=== PATIENT | male | born 1955 | race Caucasian/White ===

== ENCOUNTER 2022-09-07 21:02 | Emergency (ER) | payer MEDICARE, MEDICAID, SELFPAY ==
--- NOTE | ~2022-09-07 | CT_ITS ---
EXAMINATION: NONCONTRAST HEAD CT NONCONTRAST CERVICAL SPINE CT INDICATION INFORMATION: Fall with laceration to the back of the head COMPARISON: None TECHNIQUE: Separate noncontrast CT examinations of the head and cervical spine were performed. Coronal and sagittal images were created for each examination at the technologist workstation. This CT examination was performed using dose optimization techniques as appropriate, variously including the following: *Automated exposure control *Adjustment of mA and/or kV according to patient size (this includes techniques or standardized protocols for targeted exams where dose is matched to indication/reason for exam; i.e. extremities or head) *Use of iterative reconstruction technique DLP: 905 mGy-cm FINDINGS: HEAD: No intra or extra-axial fluid collection, hemorrhage, or mass. No ventriculomegaly. No midline shift or herniation. Basal cisterns are patent. Skelton-white matter differentiation is maintained. No territorial encephalomalacia. No significant volume loss. There is no abnormal attenuation within the brain parenchyma. Small right posterior scalp laceration. Status post lateral lens extractions. No calvarial fracture. Mild mucosal thickening in a few anterior right ethmoid air cells. Mastoid air cells normally aerated. CERVICAL SPINE: Alignment: Minimal retrolisthesis at C2-C3 and C3-C4. Minimal grade 1 anterolisthesis at C7-T1. No additional subluxation. Vertebra: No acute fracture. No prevertebral soft tissue swelling. Degenerative disc disease: Moderate cervical spondylosis at C2-C3 through C6-C7 with moderate disc height loss, endplate sclerosis, vacuum disc phenomena hepatic levels and endplate proliferative change. Facet arthrosis most prominently at C7-T1. Multilevel moderate or moderate to severe spinal canal stenosis at C3-C4 through C6-C7. Other findings: Visualized lung apices clear. Thyroid gland grossly unremarkable. No gross mass or adenopathy in the [id number]. CT/CT cervical spine wo IV con IMPRESSION: 1. No intracranial hemorrhage or calvarial fracture. 2. Right posterior scalp laceration. 3. No traumatic subluxation or acute cervical spine fracture. 4. Moderate cervical spondylosis with multilevel moderate or moderate to severe spinal canal stenosis suspected.
--- NOTE | ~2022-09-07 | CT_ITS ---
EXAMINATION: NONCONTRAST HEAD CT NONCONTRAST CERVICAL SPINE CT INDICATION INFORMATION: Fall with laceration to the back of the head COMPARISON: None TECHNIQUE: Separate noncontrast CT examinations of the head and cervical spine were performed. Coronal and sagittal images were created for each examination at the technologist workstation. This CT examination was performed using dose optimization techniques as appropriate, variously including the following: *Automated exposure control *Adjustment of mA and/or kV according to patient size (this includes techniques or standardized protocols for targeted exams where dose is matched to indication/reason for exam; i.e. extremities or head) *Use of iterative reconstruction technique DLP: 905 mGy-cm FINDINGS: HEAD: No intra or extra-axial fluid collection, hemorrhage, or mass. No ventriculomegaly. No midline shift or herniation. Basal cisterns are patent. Skelton-white matter differentiation is maintained. No territorial encephalomalacia. No significant volume loss. There is no abnormal attenuation within the brain parenchyma. Small right posterior scalp laceration. Status post lateral lens extractions. No calvarial fracture. Mild mucosal thickening in a few anterior right ethmoid air cells. Mastoid air cells normally aerated. CERVICAL SPINE: Alignment: Minimal retrolisthesis at C2-C3 and C3-C4. Minimal grade 1 anterolisthesis at C7-T1. No additional subluxation. Vertebra: No acute fracture. No prevertebral soft tissue swelling. Degenerative disc disease: Moderate cervical spondylosis at C2-C3 through C6-C7 with moderate disc height loss, endplate sclerosis, vacuum disc phenomena hepatic levels and endplate proliferative change. Facet arthrosis most prominently at C7-T1. Multilevel moderate or moderate to severe spinal canal stenosis at C3-C4 through C6-C7. Other findings: Visualized lung apices clear. Thyroid gland grossly unremarkable. No gross mass or adenopathy in the [id number]. CT/CT head/brain wo IV con IMPRESSION: 1. No intracranial hemorrhage or calvarial fracture. 2. Right posterior scalp laceration. 3. No traumatic subluxation or acute cervical spine fracture. 4. Moderate cervical spondylosis with multilevel moderate or moderate to severe spinal canal stenosis suspected.
[2022-09-07 21:06] VITALS: BP 130/80; PULSE 71; O2SAT 98
[2022-09-07 21:21] VITALS: BP 129/78; PULSE 68; RESP 18; TEMP 36.7; O2SAT 97; BMI 21.6
--- NOTE | 2022-09-08 00:07 | ED_ITS ---
HPI - Wound/Laceration General Chief Complaint: Wound/Laceration Stated Complaint: Fall with Head Lac Time Seen by Provider: 09/07/22 21:35 Source: patient Mode of arrival: EMS History of Present Illness HPI narrative: 67-year-old male was brought in by EMS after tripping and falling while cooking dinner and struck the back of his head against the floor without loss of consciousness and is unclear of when his last tetanus was and also denies any use blood thinners. Related Data Allergies Allergy/AdvReac Type Severity Reaction Status Date / Time cat dander Allergy Unknown Verified 09/07/22 21:21 lobster Allergy Vomiting Uncoded 09/07/22 21:21 Review of Systems Review of Systems: Pertinent positives and negatives as stated in HPI. [facility] Past Medical History Source: nursing notes reviewed Social History Social History Advance Directives: No Advance Directives Information Provided: No Physical Exam Vital Signs: Vital Signs: Last Vital Signs Temp 98.0 F 09/07/22 21:21 Pulse 68 09/07/22 21:21 Resp 18 09/07/22 21:21 BP 129/78 09/07/22 21:21 Pulse Ox 97 09/07/22 21:21 O2 Del Method 09/07/22 21:21 BMI result Body Mass Index 21.6 VITAL SIGNS: Reviewed. GENERAL: Well developed, well nourished, in no acute distress. HEAD: Normocephalic/6 cm linear laceration to the cephalad aspect of the occiput EYES: PERRLA, EOMI EARS: Ext canals without abnormality OROPHARYNX: no oral lesions noted, posterior pharynx clear NECK: Supple, no adenopathy, no midline cervical spine tenderness LUNGS: Normal breath sounds. No adventitious sounds or accessory muscle use. SpO2<97> CARDIOVASCULAR: Regular rate and rhythm without noted murmurs ABDOMEN: Soft, non-tender, non-distended with bowel sounds. MUSCULOSKELETAL: No tenderness, deformities, or effusions noted on gross inspection. EXTREMITIES: No cyanosis, clubbing or edema. SKIN: Inspection of the skin reveals no rashes NEUROLOGIC: Alert and oriented x 4. Strength and sensation to light touch were grossly intact x 4. Medical Decision Making Medical Decision Making [facility] Narrative: 67-year-old male with history and clinical presentation after review of all investigations my interpretation is a mechanical fall with head strike no LOC see and not on blood thinners with imaging studies within normal limits, patient received Tdap and also had [address]. Patient is otherwise discharged home with instructions to return to either his primary care provider or this facility for removal of the alma in 7 days. Differential Diagnosis Differential Diagnoses: The differential diagnosis associated with the presentation includes Please see the discussion above Radiology Impression Radiologist Impression: My interpretation is in agreement with radiology's impression of the imaging study. Procedures Laceration Laceration 1: Site: scalp Side (If applicable): right Size (cm): 6 Description: linear Depth: simple, single layer Local Anesthetic: lidocaine 2% Amount of anesthesia used (mL): 7 Pre-repair: wound explored, irrigated extensively and deep structures intact Skin layer closed with: other (Bowman) Number of sutures: 11 Discharge Plan Discharge Clinical Impression: Accident due to mechanical fall without injury, Laceration of scalp Patient Disposition: Home, Self-Care Instructions: Staple Care (ED), Laceration (ED) Additional Instructions: 1. Resume all home medications. 2. Return to your primary care provider or this institution for removal of your alma in 7 days(there are 11). You may cleanse your hair and scalp with soap and water but please dry immediately afterwards. 3. Recommend grmz-bld-koutpet Tylenol/ibuprofen as needed for pain control. 4. Please follow-up with primary care provider in next 1-2 days for re- evaluation further outpatient management. Return to the ER for any worsening symptoms. Referrals: Brad Christianson MD [Primary Care Provider] -
[2022-09-08] MEDS: Lidocaine HCl 2 % MPF 5 ML VIAL SUBCUT (00:39)
[2022-09-08] MEDS: Diphth,Pertus(ACell),Tet Adult 0.5 ML SYRINGE IM (00:39)
[2022-09-08] MEDS: Acetaminophen 325 MG TABLET 975 MG PO (00:40)
[2022-09-08] MEDS: Ibuprofen 400 MG TABLET PO (00:42)
[2022-09-08 00:56] VITALS: RESP 18
== END 2022-09-08 00:58 | disposition home or self-care (01) ==
PROVIDERS: Emergency Provider Student in an Organized Health Care Education/Training Program; PCP Radiology Vascular & Interventional Radiology
DX: S00.01XA Abrasion of scalp, initial encounter (principal); M54.2 Cervicalgia; R51.9 Headache, unspecified; W01.10XA Fall on same level from slipping, tripping and stumbling with subsequent striking against unspecified object, initial encounter; Y93.9 Activity, unspecified; Y92.000 Kitchen of unspecified non-institutional (private) residence as the place of occurrence of the external cause; Y99.9 Unspecified external cause status; Z79.899 Other long term (current) drug therapy; Z23 Encounter for immunization
CPT/HCPCS: 12032; 70450; 72125; 90471; 90715; 99284

== ENCOUNTER 2023-08-27 09:53 | Emergency (ER) | payer MEDICARE, MEDICAID, SELFPAY ==
--- NOTE | ~2023-08-27 | CT_ITS ---
EXAMINATION: CT HEAD WITHOUT CONTRAST CLINICAL INFORMATION: Dizziness and vertigo COMPARISON: CT head on 09/07/2022 TECHNIQUE: Contiguous axial imaging was performed from the skull base to vertex without intravenous administration of contrast. This CT examination was performed using dose optimization techniques as appropriate, variously including the following: *Automated exposure control *Adjustment of mA and/or kV according to patient size (this includes techniques or standardized protocols for targeted exams where dose is matched to indication/reason for exam; i.e. extremities or head) *Use of iterative reconstruction technique DLP: 657 mGy-cm FINDINGS: No acute intracranial hemorrhage or infarct. The perez-white matter differentiation is preserved. No midline shift or hydrocephalus. No acute extra-axial fluid collections. The osseous structures are unremarkable. Sequela bilateral lens replacement. Otherwise, no orbital pathology. Mild mucosal thickening of the maxillary sinuses. The mastoid air cells are clear. CT/CT head/brain wo IV con IMPRESSION: No acute intracranial pathology.
--- NOTE | ~2023-08-27 | MR_ITS ---
EXAMINATION: MR BRAIN WITHOUT CONTRAST CLINICAL INFORMATION: Dizziness and vertigo COMPARISON: CT head on 08/27/2023 and 09/07/2022 TECHNIQUE: MRI of the brain was obtained using routine sequences without contrast. FINDINGS: No acute intracranial hemorrhage or infarct. Scattered and confluent periventricular white matter T2/FLAIR hyperintensities, nonspecific however commonly seen with small vessel ischemic disease. Prominence of the supratentorial ventricles out of proportion to sulci widening. No midline shift or hydrocephalus. No acute extra-axial fluid collections. The osseous structures are unremarkable. The pituitary gland, pineal gland and remaining midline structures are unremarkable. Sequela bilateral lens replacement. Otherwise, no orbital pathology. Mucosal thickening of the paranasal sinuses. The mastoid air cells are clear. MR/MR head/brain wo con IMPRESSION: -No acute intracranial abnormality. -Prominence of the supratentorial ventricles out of proportion to sulci widening is nonspecific however can be seen in the setting of normal pressure hydrocephalus. -Chronic microangiopathy.
[2023-08-27 09:59] VITALS: BP 141/80; PULSE 81; O2SAT 97
[2023-08-27 10:00] VITALS: BP 135/75; PULSE 63; RESP 13; TEMP 36.5; O2SAT 94; BMI 19.3
--- NOTE | 2023-08-27 10:07 | ECG_ITS ---
Test Reason : DIZZINESS Blood Pressure : / mmHG Vent. Rate : 063 BPM Atrial Rate : 063 BPM P-R Int : 108 ms QRS Dur : 076 ms QT Int : 408 ms P-R-T Axes : 071 073 061 degrees QTc Int : 417 ms Sinus rhythm with short SC Anterior infarct , age undetermined Abnormal ECG No previous ECGs available Referred By: Wero Montalvo Electronically Signed By:
[2023-08-27 10:15] VITALS: BP 135/80; PULSE 68; RESP 12; TEMP 36.6; O2SAT 97
--- NOTE | 2023-08-27 10:18 | ED_ITS ---
HPI - General Adult General Chief complaint: General Medical Stated complaint: NAUSEA AND DIZZINESS SINCE THIS AM PER EMS Time Seen by Provider: 08/27/23 10:04 Source: patient and EMS Mode of arrival: EMS Limitations: no limitations History of Present Illness HPI narrative: 68-year-old male brought in by ambulance for evaluation of vertigo and room spinning. Patient's symptoms started 2 days ago had an episode of room spinning and feeling very dizzy and unbalanced had nausea but no vomiting, patient declined any weakness or numbness or speech abnormality. Patient stated that symptoms resolved and patient felt much improved for yesterday then today after he woke up from sleep felt room spinning and dizzy. No CP or SOB. Related Data Previous Rx's Medication Instructions Recorded meclizine 25 mg tablet 25 mg PO BID PRN dizziness #14 tabs 08/27/23 Allergies Allergy/AdvReac Type Severity Reaction Status Date / Time cat dander Allergy Unknown Verified 09/07/22 21:21 lobster Allergy Vomiting Uncoded 09/07/22 21:21 Review of Systems 2 Review of Systems: all other systems are reviewed and are negative Constitutional: Reports as per HPI and Reports no additional constitutional complaints Eyes: Reports as per HPI and Reports no additional eye complaints Reports system reviewed and no additional complaints, except as documented Cardiovascular: Reports as per HPI and Reports no additional cardiovascular complaints Respiratory: Reports as per HPI and Reports no additional respiratory complaints Gastrointestinal: Reports as per HPI and Reports no additional gastrointestinal complaints Genitourinary: Reports no additional female genitourinary complaints Musculoskeletal: Reports no additional musculoskeletal complaints Skin/Breast: Reports system reviewed and no additional complaints, except as docu Psychiatric: Reports no additional psychiatric complaints Endocrine: Reports no additional endocrine complaints Hematologic/Lymphatic: Reports no additional hematologic/lymphatic complaints Allergic/Immunologic: Reports no additional allergic/immunologic complaints Reports system reviewed and no additional complaints, except as documented and Reports Abnormal speech present [facility] Social History Social History Alcohol intake: current Alcohol intake frequency: a few times a week Alcohol type: beer Smoked in Last 30 Days: No Use of substances other than those prescribed or required for medical reasons: No Advance Directives: Yes Advance Directives Information Provided: No Advance Directives on File: No Physical Exam ED Vital Signs: Vital Signs - 24 hr 08/27/23 10:00 08/27/23 10:15 Temperature 97.7 F 98 F Pulse Rate 63 68 Respiratory Rate 13 12 Blood Pressure 135/75 135/80 Pulse Oximetry 94 97 Oxygen Delivery Method Room Air Room Air BMI result Body Mass Index 19.3 Vital signs have been reviewed and appear to be correct. Blood pressure elevated. Heart rate normal. Respiratory rate normal. Temperature normal. Oxygen saturation normal. Appearance: Alert. Oriented X3. No acute distress. Head: Normal external exam. Normocephalic. Atraumatic. No Mondragon signs noted. No raccoon eyes noted Eyes: PERRLA. EOMI. Conjunctiva and sclera normal. Eyelids normal. ENT: TM's Normal. Pharynx normal. Uvula midline. Moist mucous membranes. No trismus noted. No drooling noted. No muffled voice noted. Neck: Normal inspection. Neck supple. FROM. No adenopathy. Thyroid Normal. No meningeal signs. No neck mass noted. CVS: Normal heart rate and rhythm. Heart sound normal. No murmurs noted. Pulses normal throughout. Respiratory: No respiratory distress. Painless inspiration. Breath sounds normal. No wheezes/rales/rhonchi noted. Chest nontender. No accessory muscle usage noted or decreased air movement noted. Abdomen: Soft and nontender. Bowel sounds normal in all 4 quadrants. No distention noted. No organomegaly noted. No visible injury noted. Back: No CVA tenderness. Full range of motion noted. Skin: Skin warm and dry. Normal skin color. Normal skin turgor. No rashes/lesions/lacerations noted. Extremities: No lower extremity edema. Extremities exhibit normal range of motion. Extremities nontender. Neuro: Oriented X 3. Cranial nerve exam: II-XII are grossly intact No motor deficit. No sensory deficit. Reflexes normal. NIH Stroke Scale Time: 10:23 Level of Consciousness: Alert Level of Consciousness Questions: Answers both questions correctly Level of Consciousness Commands: Performs both tasks correctly Best Gaze: Normal Visual: No visual loss Facial Palsy: Normal Motor Arm (Right): No drift Motor Arm (Left): No drift Motor Leg (Right): No drift Motor Leg (Left): No drift Limb Ataxia: Absent Sensory: Normal Best Language: No aphasia Dysarthia: Normal Extinction and Inattention: No abnormality Score: 0 Course Reevaluation(s) Reevaluation #1: Patient has a normal neuro exam, CT/MR of the brain are unremarkable for acute intracranial stroke or abnormality, patient's symptoms is more than likely to be a peripheral vertigo will prescribe meclizine. Time: 13:29 Medical Decision Making Differential Diagnosis Differential Diagnoses: The differential diagnosis associated with the presentation includes (Peripheral vertigo, central vertigo, dehydration, electrolyte abnormality, severe anemia, intracranial bleed, acute CVA.) Admission/Observation Consideration of admission/observation: Escalation of care including admission/observation considered Lab Data MDM Lab Attestation statement: I reviewed the patient's lab results. 08/27/23 10:23 08/27/23 10:23 Labs: Lab Results 08/27/23 Range/Units 10:23 WBC 4.5 L (4.8-10.8) X10*3/uL RBC 4.31 L (4.60-5.80) X10*6/uL Hgb 14.1 (14.0-18.0) g/dl Hct 39.6 L (42.0-52.0) % MCV 91.9 (80.0-98.0) fL MCH 32.7 (27.0-33.0) pg MCHC 35.6 (31.0-36.0) g/dl RDW 11.6 (11.0-16.0) % Plt Count 242 (160-400) X10*3/uL MPV 10.1 (9.4-12.4) fL Immature Gran % (Auto) 0.2 (0.0-0.4) % Neut % (Auto) 48.3 (45-73) % Lymph % (Auto) 37.9 (20-40) % Lamoure % (Auto) 7.8 (2-11) % Eos % (Auto) 4.7 H (0-4) % Baso % (Auto) 1.1 (0-2) % Lymph # (Auto) 1.7 (1.2-4.9) X10*3/uL Lamoure # (Auto) 0.4 (0.1-1.2) X10*3/uL Eos # (Auto) 0.2 (0.0-0.4) X10*3/uL Baso # (Auto) 0.1 (0.0-0.2) X10*3/uL Abs Immat Gran (auto) 0.01 (0.00-0.03) X10*3/uL Absolute Neuts (auto) 2.2 (2.0-8.3) x10*3/uL Absolute Nucleated RBC 0.000 (0.0-0.012) X10*3/uL Nucleated RBC % (auto) 0.0 (0.0-0.2) /100WBC Sodium 141 (135-145) mmol/L Potassium 4.1 (3.3-5.1) mmol/L Chloride 110 H (96-108) mmol/L Carbon Dioxide 24 (22-29) mmol/L Anion Gap 11 L (12-20) BUN 12 (9-16) mg/dL Creatinine 0.71 (0.5-1.4) mg/dL Estim Creat Clear Calc 76.1 Estimated GFR > 60 Random Glucose 89 (60-115) mg/dL Calcium 9.1 (8.4-10.2) mg/dL Total Bilirubin 0.8 (0.0-1.0) mg/dL AST 20 (5-37) U/L ALT 15 (0-40) U/L Alkaline Phosphatase 97 (39-117) U/L Total Protein 6.7 (6.5-8.0) g/dL Albumin 3.9 (3.5-5.0) g/dL Independent Interpretation I performed an independent interpretation of an: EKG (Normal sinus rhythm at 61 beats per minute, normal intervals, no ST-T changes.) and CT Scan (Head: No acute intracranial pathology.) Interpretation: MRI of the brain: No acute intracranial pathology. Radiology Impression Discussion of test interpretation with radiology: I have reviewed the radiologist's reading. Discharge Plan Discharge Clinical Impression: Episodic peripheral vertigo Patient Disposition: Home, Self-Care Instructions: Vertigo (ED) Prescriptions: New meclizine 25 mg tablet 25 mg PO BID PRN (Reason: dizziness) Qty: 14 0RF
[2023-08-27 10:29] LABS: MANUAL DIFF FLAG NO
[2023-08-27 10:31] LABS: Basophils Absolute Auto 0.1 X10*3/uL (0.0-0.2); Basophils Percent Auto 1.1 % (0-2); Eosinophils Absolute Auto 0.2 X10*3/uL (0.0-0.4); Eosinophils Percent Auto 4.7 % (0-4); Hematocrit 39.6 % (42.0-52.0); Hemoglobin 14.1 g/dl (14.0-18.0); Imm Gran Abs Auto 0.01 X10*3/uL (0.00-0.03); Imm Gran Pct Auto 0.2 % (0.0-0.4); Lymphocytes Absolute Auto 1.7 X10*3/uL (1.2-4.9); Lymphocytes Percent Auto 37.9 % (20-40); Mean Corpuscular HGB Conc 35.6 g/dl (31.0-36.0); Mean Corpuscular Hemoglobin 32.7 pg (27.0-33.0); Mean Corpuscular Volume 91.9 fL (80.0-98.0); Mean Platelet Volume 10.1 fL (9.4-12.4); Monocytes Absolute Auto 0.4 X10*3/uL (0.1-1.2); Monocytes Percent Auto 7.8 % (2-11); Neutrophils Absolute Auto 2.2 x10*3/uL (2.0-8.3); Neutrophils Percent Auto 48.3 % (45-73); Platelet Count 242 X10*3/uL (160-400); Red Blood Count 4.31 X10*6/uL (4.60-5.80); Red Cell Distribution Width 11.6 % (11.0-16.0); White Blood Count 4.5 X10*3/uL (4.8-10.8)
[2023-08-27 10:51] LABS: Alanine Aminotransferase 15 U/L (0-40); Albumin Level 3.9 g/dL (3.5-5.0); Alkaline Phosphatase 97 U/L (39-117); Anion Gap 11 (12-20); Aspartate Amino Transferase 20 U/L (5-37); Bilirubin Total 0.8 mg/dL (0.0-1.0); Blood Urea Nitrogen 12 mg/dL (9-16); Calcium 9.1 mg/dL (8.4-10.2); Carbon Dioxide 24 mmol/L (22-29); Chloride 110 mmol/L (96-108); Creatinine Clr Calc Pharmacy 76.1; Estimated Glomerular Filt Rate > 60; Glucose Random 89 mg/dL (60-115); Potassium 4.1 mmol/L (3.3-5.1); Sodium 141 mmol/L (135-145); Total Protein 6.7 g/dL (6.5-8.0)
[2023-08-27 12:00] VITALS: BP 132/79; PULSE 63; RESP 18; O2SAT 97
--- NOTE | 2023-08-27 13:15 | PC.NURSE ---
back from mri. no distress.
[2023-08-27 14:00] VITALS: BP 135/77; PULSE 64; RESP 16; TEMP 36.6; O2SAT 98
== END 2023-08-27 14:18 | disposition home or self-care (01) ==
PROVIDERS: Emergency Provider Emergency Medicine
DX: H81.399 Other peripheral vertigo, unspecified ear (principal)
CPT/HCPCS: 36415; 70450; 70551; 80053; 85025; 93005; 99285

== ENCOUNTER 2024-10-15 06:25 | Emergency (ER) | payer MEDICARE, MEDICAID, SELFPAY ==
--- NOTE | ~2024-10-15 | CT_ITS ---
CLINICAL HISTORY: fall CT head without contrast Comparison: 08/27/2023 Findings: No new intra-axial mass, midline shift, hydrocephalus, or acute hemorrhage. No significant atrophy-like change or white matter disease. The visualized paranasal sinuses and mastoid air cells are normal. The orbits are unremarkable. No skull fracture. IMPRESSION: 1. No acute intracranial findings. This document has been electronically signed by: Alan Price MD on 10/15/2024 08:35:08
--- NOTE | ~2024-10-15 | CT_ITS ---
CLINICAL HISTORY: fall CT cervical spine without contrast Comparison: 09/07/2022 Findings: Vertebral alignment is within normal limits. There is multiple level degenerative disc, facet, and uncovertebral joint change. No acute fractures or dislocations. Visualized intracranial contents are unremarkable. No cervical fluid collections or masses. Lung apices are clear. IMPRESSION: No acute findings. This document has been electronically signed by: Alan Price MD on 10/15/2024 08:42:55
[2024-10-15 06:28] VITALS: BP 131/75; BP 138/84; PULSE 73; PULSE 78; RESP 20; TEMP 36.6; O2SAT 97; O2SAT 98; BMI 21.5
--- NOTE | 2024-10-15 07:15 | PC.NURSE ---
Care of Pt assumed at change of shift. Pt is A&Ox3. Pt presents with large lac to middle of scalp, crown area. No active bleeding or bruising present at this time. polytechnic registrar cleanses wound and applied DSD. Pt reports lac is tender to the touch when cleaning but otherwise has no pain. No complaints offered at this time. Pt awaiting provider eval.
--- OUTSIDE RECORDS SUMMARY | 2024-10-15 07:47 | XMS_ITS ---
Author Organization [facility] Address [address] [place] [address] Care Team Providers Care Cage/Vault Supervisor Name Role Phone JOSE DUDLEY Primary Care Provider REASON FOR VISIT CCM Encounters Encounter Location Date Provider Diagnosis [facility] [facility] [address] JOSE MARTIN [address] [place] [address] 06/17/2024 JOSE DUDLEY PLAN OF TREATMENT Next Appt Details Provider Name:SLY LUND, 12/22/2024 10:15:00 AM, [address] , [facility], [place], [address], Progress Notes * Randy MOJICADOB:1955 (69 yo M)Acc No.[id number]:06/17/2024 Patient:??Randy MOJICA :1955?Age:69 Y?Sex:Chana dick Address:[address] [place] [address] [place] [id number] * true * Date:??
--- OUTSIDE RECORDS SUMMARY | 2024-10-15 07:47 | XMS_ITS | Patient Health Record ---
Author Organization [email or web address] Address [address] [place] [address] Care Team Providers Care Tipping Machine Operator Name Role Phone JOSE DUDLEY Primary Care Provider [phone] SLY LUND Unavailable [phone] ALLERGIES No Known Allergies RESULTS Component Value Reference Range Notes CBC Reviewed date:12/16/2023 10:26:31 AM Interpretation: Performing Lab: Notes/Report: Note Original Ordering Provider: SLY LUND NP PT PAL, a member of [address] [address] [employer] [facility] [place] [facility] MD WBC 6.7 4.8-10.8 x10-3/uL RBC 4.4 4.5-5.5 x10-6/uL HEMOGLOBIN 14.6 13.5-17.5 g/dL HEMATOCRIT 42.2 42-54 % MCV 96.3 79-98 fL MCH 33.3 27-32 pg MCHC 34.6 32-37 g/dL RDW 11.8 11-15 % PLT COUNT 296 130-400 x10-3/uL MEAN PLATELET VOLUME 11.0 7-11 fL NRBC % AUTO 0.0 <1 % NRBC # AUTO 0.00 <0.1 x10-3/uL Note Original Ordering Provider: SLY LUND NP PT PAL, a member of [address] [address] [employer] [facility] [place] [facility] MD URINALYSIS Reviewed date:12/16/2023 10:53:57 AM Interpretation: Performing Lab: Notes/Report: Note Original Ordering Provider: SLY LUND NP PT PAL, a member of [address] [address] [employer] [facility] [place] [facility] MD GLUCOSE, (UA) NEGATIVE NEGATIVE mg/dL BILIRUBIN, URINE NEGATIVE NEGATIVE KETONE, URINE NEGATIVE NEGATIVE mg/dL SPECIFIC GRAVITY, URINE 1.011 1.003-1.030 BLOOD, URINE NEGATIVE NEGATIVE PH, URINE 6.5 5.0-8.0 PROTEIN, URINE NEGATIVE <= TRACE mg/dl UROBILINOGEN, URINE 1.0 0.2-1.0 E.U./dL NITRITE, URINE NEGATIVE NEGATIVE LEUKOCYTE ESTERASE, URINE NEGATIVE NEGATIVE Note Original Ordering Provider: SLY LUND NP PT PAL, a member of [address] [address] [employer] [facility] [place] [facility] MD GLYCOHEMOGLOBIN PROFILE Reviewed date:12/16/2023 01:03:49 PM Interpretation: Performing Lab: Notes/Report: GLYCATED HEMOGLOBIN A1C 4.7 <6.5 % ESTIMATED AVERAGE GLUCOSE 88 COMPREHENSIVE METABOLIC PANE L Reviewed date:12/16/2023 10:53:57 AM Interpretation: Performing Lab: Notes/Report: Note Original Orderi ng Provider: SLY LUND NP GLUCOSE 89 70-100 mg/dL Reference range applicable to fasting specimens only BUN 17 5-25 mg/dL CREAT 0.76 0.7-1.3 mg/dL GLOMERULAR FILTRATION RATE 99 >60 This eGFR result was calculated using the CKD-EPI 2020 Creatinine Equation SODIUM 142 135-145 mEq/L POTASSIUM 4.5 3.5-5.5 mmol/L CHLORIDE 109 96-110 mmol/L CO2 27 21-32 mmol/L ANION GAP 6 3-11 CALCIUM 10.1 8.5-10.5 mg/dL TOTAL PROTEIN 7.1 6.0-8.0 G/dL ALBUMIN 4.3 3.2-5.0 G/dL BILI,TOTAL 1.0 0.0-1.4 mg/dL SGOT 22 10-42 U/L SGPT 27 10-60 U/L ALK PHOS 113 42-121 U/L LIPID PROFILE Reviewed date:12/16/2023 10:53:57 AM Interpretation: Performing Lab: Notes/Report: CHOLESTEROL 151 0-200 mg/dL TRIGLYCERIDES 79 0-150 mg/dL VITAMIN D, 25-HYDROXY Reviewed date:12/16/2023 10:53:57 AM Interpretation: Performing Lab: Notes/Report: VITAMIN D, 25-HYDROXY 53 30-80 ng/mL TSH Reviewed date:12/16/2023 10:53:57 AM Interpretation: Performing Lab: Notes/Report: TSH 2.31 0.40-4.00 uIU/ml REASON FOR REFERRAL No Information MEDICATIONS Medication SIG (Take, Route, Frequency, Duration) Notes Start Date End Date Status Centrum Silver - Orally Not -Taking amLODIPine Besylate 5 MG TAKE 1 TABLET B Y MOUTH EVERY DAY for 90 Active Vitamin D3 125 MCG (5000 UT) 1 capsule Orally Once a day for 90 days Active Thera Tears Allergy Not-Taking Spectravite - as directed Orally Not-Taking Omeprazole 20 MG TAKE 1 CAPSULE BY MO UTH EVERY DAY for 90 Active IMMUNIZATIONS Vaccine Route Administration Date Status Comme nts Flu vaccine no Preserv 3 and > IM Intramuscular 05/06/2018 Administered Influenza, high dose seasonal IM Intramuscular 04/30/2023 Administered Influenza, seasonal, injectable, preservative free, 3 yrs and above IM Intramuscular 05/04/2019 Administered Pneumococcal polysaccharide PPV23 IM Intramuscular 05/06/2018 Administered SOCIAL HISTORY Tobacco Use: Social History Observation Description Date Details (start date - stop date) Never Smoker NA - NA Sex Assigned At : Social History Observation Description Sex Assigned At Unknown Tobacco Use/Smoking Question Answer Notes Are you a nonsmoker PROBLEMS Problem Type ICD Code Onset Dates Problem Status W/U Status Risk SNOMED Code Notes Problem Vitamin D deficiency, unspecified (E55.9) Active confirmed Vitamin D deficiency (20815232) Problem Hyperlipidemia, unspecified (E78.5) Active confirmed Hyperlipidemia (64643305) Problem 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 Ataxic cerebra l palsy (296294080) Problem Essential (primary) hypertension (I10) Active confirmed Essential hypertension (34190066) Problem Gastro-esophagea l reflux disease with esophagitis (K21.0) Active confirmed Gastro-esophage al reflux disease with esophagitis (328652954) Problem Encounter for general adult medical examination without abnormal findings (Z00.00) Active confirmed 284479596 Problem Colon cancer screening (Z12.11) Active confirmed Colon cancer screening (219375468) Problem Hypothyroidism, unspecified type (E03.9) Active confirmed Hypothyroidism (36372687) Problem Vitamin D deficiency (E55.9) Active confirmed Vitamin D deficiency (17207633) VITAL SIGNS Heart Rate 94 /min 06/17/2024 Oximetry 98 % 06/17/2024 Blood pressure diastolic 82 mm Hg 06/17/2024 Height 59 in 06/17/2024 Blood pressure systolic 130 mm Hg 06/17/2024 Weight 128 lbs 06/17/2024 BMI 25.85 kg/m2 06/17/2024 Encounters Encounter Location Date Provider Diagnosis [place] [address] [address] 10/28/2023 SLY LUND Ataxic cerebral pals y G80.4 ; Encounter for general adult medical examination without abnormal findings Z00.00 ; Essential (primary) hypertension I10 ; Gastro-esophageal reflux disease with esophagitis K21.0 ; Hyperlipidemia, unspecified E78.5 ; Hypothyroidism, unspecified type E03.9 ; Pre-diabetes R73.03 ; Encounter for screening for depression Z13.31 and Encounter for screening for other disorder Z13.89 [place] [address] 12/18/2023 SLY LUND Encounter for screen ing for depression Z13.31 ; Encounter for general adult medical examination without abnormal findings Z00.00 ; Encounter for screening for other disorder Z13.89 ; Ataxic cerebral palsy G80.4 ; Essential (primary) hypertension I10 ; Gastro-esophageal reflux disease with esophagitis K21.0 ; Hyperlipidemia, unspecified E78.5 ; Hypothyroidism, unspecified type E03.9 and Pre-diabetes R73.03 [place] [address] [address] 06/17/2024 SLY ASEHLY Ataxic cerebral pals y G80.4 ; Essential (primary) hypertension I10 ; Hyperlipidemia, unspecified E78.5 ; Hypothyroidism, unspecified type E03.9 and Pre-diabetes R73.03 [place] [address] 06/17/2024 JOSE DUDLEY [address] [address] 08/30/2024 JOSE DUDLEY ASSESSMENTS Encounter Date Diagnosis Assessment Notes Treatment Notes Treatment Clinical Notes Section Notes 06/17/2024 Ataxic cerebral palsy (ICD-10 - G80.4) Acute Concerns/Problem List: 06/17/2024 Chronic conditions are stable Will see him back for Medicare visit in the spring with updated labs. Of note, some information is being carried forward from prior records for informational purposes only and is being cited so that efficiency, safety and quality of the patient's care is not compromised This note was prepared using voice recognition software and direct typing Please excuse inadvertent hatchery man or typing errors, or uncorrected word substitutions Although every attempt has been made by the provider to proofread this document, occasional misspellings and typographical errors may still be present Due to the previous pandemic, and the use of personal protective equipment (PPE) This may decrease voice recognition accuracy Inadvertent hatchery man errors may occur 12/18/2023 Encounter for screening for depression (ICD-10 - Z13.31) Patient presents today for [facility] Acute Concerns/Problem List: 12/18/2023 We recommend RSV vaccination HTN: BP is stable. He is compliant on amlodipine with no unwanted side effects. Continue amlodipine as prescribed. Cerebral palsy: He is ambulating well with crutches. He admits to feeling well overall and has no other concerns. Home care services provided. GERD: He is currently taking Omeprazole with good effect and no unwanted side effects. Refill omeprazole. Colorectal/EGD 01/2023 DANTE Alvarado 4 mo f/u Reviewed with patient the importance of medication and treatment plan compliance with BP goal of less then 140/90 per JNC 8 guidelines based on patient's age. This will ensure optimal health outcomes and prevent target organ damage. Made aware that uncontrolled hypertension may be silent and result in a stroke, heart attack, renal failure or even . Discussed the rationale for individualized medication regimen and the effects of their BP. Instructed to seek emergent care if the patient develops a headache, blurry vision, dizziness, chest pain or pressure. Patient seen for MEDICARE WELLNESS VISIT and examined. Comprehensive discussion was done on the following. 1. Nutrition: It is important to follow a healthy diet based on lots of vegetables and legumes and good fat. Avoid processed food and processed carbohydrates. Learn to prepare your own meals. Learn to read labels and avoid high fructose corn syrup, processed chemicals added to increase shelf life and preprepared meals. Avoid fast foods. Learn to eat slowly and plan meals for a week. Try to count calories and be mindful off daily calorie intake. Get into the habit of keeping an eye on your weight by using an appropriate scale. Learn to log exercise and discussed fitness Apps like [employer] which can help keep log off calories taken versus calories burned. Local food should be preferred. Discussed Dirty Dozen Versus Clean Fifteen. Discussed healthy supplements like fish oil, Tumeric, Curcumin, Melatonin, Resveratrol, Probiotics, Vitamin-D, Alpha-Lipoic acid, Vitamin-D and coconut oil. 2. It is important to exercise regularly. Is a good habit to walk at least 30-45 minutes a day. Gentle weightlifting with standard precautions to protect the back. Finding activity like cycling or hiking and get into the habit of engaging in it. Stretching before and after the exercises important. It is also important to contact me if there are any problems like shortness of breath, chest pain, back pain and joint or muscle pain associated with the exercise. 3. Discussed age appropriate gender specific screening guidelines. Colonoscopy needs to start at age 45 with stool for occult blood as appropriate. There is a new test that can test for genetic abnormalities in the stool sample. This would not replace a colonoscopy but could be used as a screening tool for patients who do not want a colonoscopy. We discussed the importance of early detection of colon cancer. 4. Discussed current gender specific guidelines with respect to breast examination, mammogram and pap smear for early detection of breast and cervical cancer. Patient advised to follow up with these appointments. 5. Discussed safe driving and no use of smart phone while driving 6. Age-appropriate immunizations were discussed. A tetanus booster is needed every 10 years. Flu vaccine is recommended every year just before the start of the flu season. Shingles vaccine is recommended after age 50 but not all insurances cover it. Pneumonia vaccine is given after age 65 unless there are certain comorbidities for which it is started earlier. Newly approved RSV vaccine was also discussed COVID booster discussed 7. Diagnostic labs were discussed. These could include CBC CMP and lipids with fasting blood glucose and insulin levels. Vitamin D and hemoglobin A1c testing might be appropriate. 8. Patient and I had a detailed discussion on healthcare proxy and will follow. . I gave form for that as well as [place] order for life sustaining treatment. I screen for depression and she seems to be okay. I counseled on elimination of refined carbohydrates and processed food 9. Patient will be tested for dementia by neuropsychologica l testing if warranted and deemed appropriate by provider Of note, some information is being carried forward from prior records for informational purposes only and is being cited so that efficiency, safety and quality of the patient's care is not compromised This note was prepared using voice recognition software and direct typing Please excuse inadvertent hatchery man or typing errors, or uncorrected word substitutions Although every attempt has been made by the provider to proofread this document, occasional misspellings and typographical errors may still be present Due to the previous pandemic, and the use of personal protective equipment (PPE) This may decrease voice recognition accuracy Inadvertent hatchery man errors may occur 10/28/2023 Ataxic cerebral palsy (ICD-10 - G80.4) patient presents today for [facility] Acute Concerns/Problem List: 10/28/2023 #HTN: BP is stable. He is compliant on amlodipine with no unwanted side effects. -Continue amlodipine as prescribed. #Cerebral palsy: He is ambulating well with crutches. He admits to feeling well overall and has no other concerns. Home care services provided. #GERD: He is currently taking Omeprazole with good effect and no unwanted side effects. - Refill omeprazole. supplement VIt D Colorectal/EGD 01/2023 DANTE Alvarado Reviewed with patient the importance of medication and treatment plan compliance with BP goal of less then 140/90 per JNC 8 guidelines based on patient's age. This will ensure optimal health outcomes and prevent target organ damage. Made aware that uncontrolled hypertension may be silent and result in a stroke, heart attack, renal failure or even . Discussed the rationale for individualized medication regimen and the effects of their BP. Instructed to seek emergent care if the patient develops a headache, blurry vision, dizziness, chest pain or pressure. Patient seen for MEDICARE WELLNESS VISIT and examined. Comprehensive discussion was done on the following. 1. Nutrition: It is important to follow a healthy diet based on lots of vegetables and legumes and good fat. Avoid processed food and processed carbohydrates. Learn to prepare your own meals. Learn to read labels and avoid high fructose corn syrup, processed chemicals added to increase shelf life and preprepared meals. Avoid fast foods. Learn to eat slowly and plan meals for a week. Try to count calories and be mindful off daily calorie intake. Get into the habit of keeping an eye on your weight by using an appropriate scale. Learn to log exercise and discussed fitness Apps like [employer] which can help keep log off calories taken versus calories burned. Local food should be preferred. Discussed Dirty Dozen Versus Clean Fifteen. Discussed healthy supplements like fish oil, Tumeric, Curcumin, Melatonin, Resveratrol, Probiotics, Vitamin-D, Alpha-Lipoic acid, Vitamin-D and coconut oil. 2. It is important to exercise regularly. Is a good habit to walk at least 30-45 minutes a day. Gentle weightlifting with standard precautions to protect the back. Finding activity like cycling or hiking and get into the habit of engaging in it. Stretching before and after the exercises important. It is also important to contact me if there are any problems like shortness of breath, chest pain, back pain and joint or muscle pain associated with the exercise. 3. Discussed age appropriate gender specific screening guidelines. Colonoscopy needs to start at age 45 with stool for occult blood as appropriate. There is a new test that can test for genetic abnormalities in the stool sample. This would not replace a colonoscopy but could be used as a screening tool for patients who do not want a colonoscopy. We discussed the importance of early detection of colon cancer. 4. Discussed current gender specific guidelines with respect to breast examination, mammogram and pap smear for early detection of breast and cervical cancer. Patient advised to follow up with these appointments. 5. Discussed safe driving and no use of smart phone while driving 6. Age-appropriate immunizations were discussed. A tetanus booster is needed every 10 years. Flu vaccine is recommended every year just before the start of the flu season. Shingles vaccine is recommended after age 50 but not all insurances cover it. Pneumonia vaccine is given after age 65 unless there are certain comorbidities for which it is started earlier. Newly approved RSV vaccine was also discussed COVID booster discussed 7. Diagnostic labs were discussed. These could include CBC CMP and lipids with fasting blood glucose and insulin levels. Vitamin D and hemoglobin A1c testing might be appropriate. 8. Patient and I had a detailed discussion on healthcare proxy and will follow. . I gave form for that as well as [place] order for life sustaining treatment. I screen for depression and she seems to be okay. I counseled on elimination of refined carbohydrates and processed food 9. Patient will be tested for dementia by neuropsychologica l testing if warranted and deemed appropriate by provider Of note, some information is being carried forward from prior records for informational purposes only and is being cited so that efficiency, safety and quality of the patient's care is not compromised This note was prepared using voice recognition software and direct typing Please excuse inadvertent hatchery man or typing errors, or uncorrected word substitutions Although every attempt has been made by the provider to proofread this document, occasional misspellings and typographical errors may still be present Due to the previous pandemic, and the use of personal protective equipment (PPE) This may decrease voice recognition accuracy Inadvertent hatchery man errors may occur 10/28/2023 Encounter for general adult medical examination without abnormal findings (ICD-10 - Z00.00) patient presents today for [facility] Acute Concerns/Problem List: 10/28/2023 #HTN: BP is stable. He is compliant on amlodipine with no unwanted side effects. -Continue amlodipine as prescribed. #Cerebral palsy: He is ambulating well with crutches. He admits to feeling well overall and has no other concerns. Home care services provided. #GERD: He is currently taking Omeprazole with good effect and no unwanted side effects. - Refill omeprazole. supplement VIt D Colorectal/EGD 01/2023 DANTE Alvarado Reviewed with patient the importance of medication and treatment plan compliance with BP goal of less then 140/90 per JNC 8 guidelines based on patient's age. This will ensure optimal health outcomes and prevent target organ damage. Made aware that uncontrolled hypertension may be silent and result in a stroke, heart attack, renal failure or even . Discussed the rationale for individualized medication regimen and the effects of their BP. Instructed to seek emergent care if the patient develops a headache, blurry vision, dizziness, chest pain or pressure. Patient seen for MEDICARE WELLNESS VISIT and examined. Comprehensive discussion was done on the following. 1. Nutrition: It is important to follow a healthy diet based on lots of vegetables and legumes and good fat. Avoid processed food and processed carbohydrates. Learn to prepare your own meals. Learn to read labels and avoid high fructose corn syrup, processed chemicals added to increase shelf life and preprepared meals. Avoid fast foods. Learn to eat slowly and plan meals for a week. Try to count calories and be mindful off daily calorie intake. Get into the habit of keeping an eye on your weight by using an appropriate scale. Learn to log exercise and discussed fitness Apps like [employer] which can help keep log off calories taken versus calories burned. Local food should be preferred. Discussed Dirty Dozen Versus Clean Fifteen. Discussed healthy supplements like fish oil, Tumeric, Curcumin, Melatonin, Resveratrol, Probiotics, Vitamin-D, Alpha-Lipoic acid, Vitamin-D and coconut oil. 2. It is important to exercise regularly. Is a good habit to walk at least 30-45 minutes a day. Gentle weightlifting with standard precautions to protect the back. Finding activity like cycling or hiking and get into the habit of engaging in it. Stretching before and after the exercises important. It is also important to contact me if there are any problems like shortness of breath, chest pain, back pain and joint or muscle pain associated with the exercise. 3. Discussed age appropriate gender specific screening guidelines. Colonoscopy needs to start at age 45 with stool for occult blood as appropriate. There is a new test that can test for genetic abnormalities in the stool sample. This would not replace a colonoscopy but could be used as a screening tool for patients who do not want a colonoscopy. We discussed the importance of early detection of colon cancer. 4. Discussed current gender specific guidelines with respect to breast examination, mammogram and pap smear for early detection of breast and cervical cancer. Patient advised to follow up with these appointments. 5. Discussed safe driving and no use of smart phone while driving 6. Age-appropriate immunizations were discussed. A tetanus booster is needed every 10 years. Flu vaccine is recommended every year just before the start of the flu season. Shingles vaccine is recommended after age 50 but not all insurances cover it. Pneumonia vaccine is given after age 65 unless there are certain comorbidities for which it is started earlier. Newly approved RSV vaccine was also discussed COVID booster discussed 7. Diagnostic labs were discussed. These could include CBC CMP and lipids with fasting blood glucose and insulin levels. Vitamin D and hemoglobin A1c testing might be appropriate. 8. Patient and I had a detailed discussion on healthcare proxy and will follow. . I gave form for that as well as [place] order for life sustaining treatment. I screen for depression and she seems to be okay. I counseled on elimination of refined carbohydrates and processed food 9. Patient will be tested for dementia by neuropsychologica l testing if warranted and deemed appropriate by provider Of note, some information is being carried forward from prior records for informational purposes only and is being cited so that efficiency, safety and quality of the patient's care is not compromised This note was prepared using voice recognition software and direct typing Please excuse inadvertent hatchery man or typing errors, or uncorrected word substitutions Although every attempt has been made by the provider to proofread this document, occasional misspellings and typographical errors may still be present Due to the previous pandemic, and the use of personal protective equipment (PPE) This may decrease voice recognition accuracy Inadvertent hatchery man errors may occur 10/28/2023 Essential (primary) hypertension (ICD-10 - I10) patient presents today for [facility] Acute Concerns/Problem List: 10/28/2023 #HTN: BP is stable. He is compliant on amlodipine with no unwanted side effects. -Continue amlodipine as prescribed. #Cerebral palsy: He is ambulating well with crutches. He admits to feeling well overall and has no other concerns. Home care services provided. #GERD: He is currently taking Omeprazole with good effect and no unwanted side effects. - Refill omeprazole. supplement VIt D Colorectal/EGD 01/2023 DANTE Alvarado Reviewed with patient the importance of medication and treatment plan compliance with BP goal of less then 140/90 per JNC 8 guidelines based on patient's age. This will ensure optimal health outcomes and prevent target organ damage. Made aware that uncontrolled hypertension may be silent and result in a stroke, heart attack, renal failure or even . Discussed the rationale for individualized medication regimen and the effects of their BP. Instructed to seek emergent care if the patient develops a headache, blurry vision, dizziness, chest pain or pressure. Patient seen for MEDICARE WELLNESS VISIT and examined. Comprehensive discussion was done on the following. 1. Nutrition: It is important to follow a healthy diet based on lots of vegetables and legumes and good fat. Avoid processed food and processed carbohydrates. Learn to prepare your own meals. Learn to read labels and avoid high fructose corn syrup, processed chemicals added to increase shelf life and preprepared meals. Avoid fast foods. Learn to eat slowly and plan meals for a week. Try to count calories and be mindful off daily calorie intake. Get into the habit of keeping an eye on your weight by using an appropriate scale. Learn to log exercise and discussed fitness Apps like [employer] which can help keep log off calories taken versus calories burned. Local food should be preferred. Discussed Dirty Dozen Versus Clean Fifteen. Discussed healthy supplements like fish oil, Tumeric, Curcumin, Melatonin, Resveratrol, Probiotics, Vitamin-D, Alpha-Lipoic acid, Vitamin-D and coconut oil. 2. It is important to exercise regularly. Is a good habit to walk at least 30-45 minutes a day. Gentle weightlifting with standard precautions to protect the back. Finding activity like cycling or hiking and get into the habit of engaging in it. Stretching before and after the exercises important. It is also important to contact me if there are any problems like shortness of breath, chest pain, back pain and joint or muscle pain associated with the exercise. 3. Discussed age appropriate gender specific screening guidelines. Colonoscopy needs to start at age 45 with stool for occult blood as appropriate. There is a new test that can test for genetic abnormalities in the stool sample. This would not replace a colonoscopy but could be used as a screening tool for patients who do not want a colonoscopy. We discussed the importance of early detection of colon cancer. 4. Discussed current gender specific guidelines with respect to breast examination, mammogram and pap smear for early detection of breast and cervical cancer. Patient advised to follow up with these appointments. 5. Discussed safe driving and no use of smart phone while driving 6. Age-appropriate immunizations were discussed. A tetanus booster is needed every 10 years. Flu vaccine is recommended every year just before the start of the flu season. Shingles vaccine is recommended after age 50 but not all insurances cover it. Pneumonia vaccine is given after age 65 unless there are certain comorbidities for which it is started earlier. Newly approved RSV vaccine was also discussed COVID booster discussed 7. Diagnostic labs were discussed. These could include CBC CMP and lipids with fasting blood glucose and insulin levels. Vitamin D and hemoglobin A1c testing might be appropriate. 8. Patient and I had a detailed discussion on healthcare proxy and will follow. . I gave form for that as well as [place] order for life sustaining treatment. I screen for depression and she seems to be okay. I counseled on elimination of refined carbohydrates and processed food 9. Patient will be tested for dementia by neuropsychologica l testing if warranted and deemed appropriate by provider Of note, some information is being carried forward from prior records for informational purposes only and is being cited so that efficiency, safety and quality of the patient's care is not compromised This note was prepared using voice recognition software and direct typing Please excuse inadvertent hatchery man or typing errors, or uncorrected word substitutions Although every attempt has been made by the provider to proofread this document, occasional misspellings and typographical errors may still be present Due to the previous pandemic, and the use of personal protective equipment (PPE) This may decrease voice recognition accuracy Inadvertent hatchery man errors may occur 06/17/2024 Essential (primary) hypertension (ICD-10 - I10) Acute Concerns/Problem List: 06/17/2024 Chronic conditions are stable Will see him back for Medicare visit in the spring with updated labs. Of note, some information is being carried forward from prior records for informational purposes only and is being cited so that efficiency, safety and quality of the patient's care is not compromised This note was prepared using voice recognition software and direct typing Please excuse inadvertent hatchery man or typing errors, or uncorrected word substitutions Although every attempt has been made by the provider to proofread this document, occasional misspellings and typographical errors may still be present Due to the previous pandemic, and the use of personal protective equipment (PPE) This may decrease voice recognition accuracy Inadvertent hatchery man errors may occur 12/18/2023 Encounter for general adult medical examination without abnormal findings (ICD-10 - Z00.00) Patient presents today for [facility] Acute Concerns/Problem List: 12/18/2023 We recommend RSV vaccination HTN: BP is stable. He is compliant on amlodipine with no unwanted side effects. Continue amlodipine as prescribed. Cerebral palsy: He is ambulating well with crutches. He admits to feeling well overall and has no other concerns. Home care services provided. GERD: He is currently taking Omeprazole with good effect and no unwanted side effects. Refill omeprazole. Colorectal/EGD 01/2023 DANTE Alvarado 4 mo f/u Reviewed with patient the importance of medication and treatment plan compliance with BP goal of less then 140/90 per JNC 8 guidelines based on patient's age. This will ensure optimal health outcomes and prevent target organ damage. Made aware that uncontrolled hypertension may be silent and result in a stroke, heart attack, renal failure or even . Discussed the rationale for individualized medication regimen and the effects of their BP. Instructed to seek emergent care if the patient develops a headache, blurry vision, dizziness, chest pain or pressure. Patient seen for MEDICARE WELLNESS VISIT and examined. Comprehensive discussion was done on the following. 1. Nutrition: It is important to follow a healthy diet based on lots of vegetables and legumes and good fat. Avoid processed food and processed carbohydrates. Learn to prepare your own meals. Learn to read labels and avoid high fructose corn syrup, processed chemicals added to increase shelf life and preprepared meals. Avoid fast foods. Learn to eat slowly and plan meals for a week. Try to count calories and be mindful off daily calorie intake. Get into the habit of keeping an eye on your weight by using an appropriate scale. Learn to log exercise and discussed fitness Apps like [employer] which can help keep log off calories taken versus calories burned. Local food should be preferred. Discussed Dirty Dozen Versus Clean Fifteen. Discussed healthy supplements like fish oil, Tumeric, Curcumin, Melatonin, Resveratrol, Probiotics, Vitamin-D, Alpha-Lipoic acid, Vitamin-D and coconut oil. 2. It is important to exercise regularly. Is a good habit to walk at least 30-45 minutes a day. Gentle weightlifting with standard precautions to protect the back. Finding activity like cycling or hiking and get into the habit of engaging in it. Stretching before and after the exercises important. It is also important to contact me if there are any problems like shortness of breath, chest pain, back pain and joint or muscle pain associated with the exercise. 3. Discussed age appropriate gender specific screening guidelines. Colonoscopy needs to start at age 45 with stool for occult blood as appropriate. There is a new test that can test for genetic abnormalities in the stool sample. This would not replace a colonoscopy but could be used as a screening tool for patients who do not want a colonoscopy. We discussed the importance of early detection of colon cancer. 4. Discussed current gender specific guidelines with respect to breast examination, mammogram and pap smear for early detection of breast and cervical cancer. Patient advised to follow up with these appointments. 5. Discussed safe driving and no use of smart phone while driving 6. Age-appropriate immunizations were discussed. A tetanus booster is needed every 10 years. Flu vaccine is recommended every year just before the start of the flu season. Shingles vaccine is recommended after age 50 but not all insurances cover it. Pneumonia vaccine is given after age 65 unless there are certain comorbidities for which it is started earlier. Newly approved RSV vaccine was also discussed COVID booster discussed 7. Diagnostic labs were discussed. These could include CBC CMP and lipids with fasting blood glucose and insulin levels. Vitamin D and hemoglobin A1c testing might be appropriate. 8. Patient and I had a detailed discussion on healthcare proxy and will follow. . I gave form for that as well as [place] order for life sustaining treatment. I screen for depression and she seems to be okay. I counseled on elimination of refined carbohydrates and processed food 9. Patient will be tested for dementia by neuropsychologica l testing if warranted and deemed appropriate by provider Of note, some information is being carried forward from prior records for informational purposes only and is being cited so that efficiency, safety and quality of the patient's care is not compromised This note was prepared using voice recognition software and direct typing Please excuse inadvertent hatchery man or typing errors, or uncorrected word substitutions Although every attempt has been made by the provider to proofread this document, occasional misspellings and typographical errors may still be present Due to the previous pandemic, and the use of personal protective equipment (PPE) This may decrease voice recognition accuracy Inadvertent hatchery man errors may occur 12/18/2023 Encounter for screening for other disorder (ICD-10 - Z13.89) Patient presents today for [facility] Acute Concerns/Problem List: 12/18/2023 We recommend RSV vaccination HTN: BP is stable. He is compliant on amlodipine with no unwanted side effects. Continue amlodipine as prescribed. Cerebral palsy: He is ambulating well with crutches. He admits to feeling well overall and has no other concerns. Home care services provided. GERD: He is currently taking Omeprazole with good effect and no unwanted side effects. Refill omeprazole. Colorectal/EGD 01/2023 DANTE Alvarado 4 mo f/u Reviewed with patient the importance of medication and treatment plan compliance with BP goal of less then 140/90 per JNC 8 guidelines based on patient's age. This will ensure optimal health outcomes and prevent target organ damage. Made aware that uncontrolled hypertension may be silent and result in a stroke, heart attack, renal failure or even . Discussed the rationale for individualized medication regimen and the effects of their BP. Instructed to seek emergent care if the patient develops a headache, blurry vision, dizziness, chest pain or pressure. Patient seen for MEDICARE WELLNESS VISIT and examined. Comprehensive discussion was done on the following. 1. Nutrition: It is important to follow a healthy diet based on lots of vegetables and legumes and good fat. Avoid processed food and processed carbohydrates. Learn to prepare your own meals. Learn to read labels and avoid high fructose corn syrup, processed chemicals added to increase shelf life and preprepared meals. Avoid fast foods. Learn to eat slowly and plan meals for a week. Try to count calories and be mindful off daily calorie intake. Get into the habit of keeping an eye on your weight by using an appropriate scale. Learn to log exercise and discussed fitness Apps like [employer] which can help keep log off calories taken versus calories burned. Local food should be preferred. Discussed Dirty Dozen Versus Clean Fifteen. Discussed healthy supplements like fish oil, Tumeric, Curcumin, Melatonin, Resveratrol, Probiotics, Vitamin-D, Alpha-Lipoic acid, Vitamin-D and coconut oil. 2. It is important to exercise regularly. Is a good habit to walk at least 30-45 minutes a day. Gentle weightlifting with standard precautions to protect the back. Finding activity like cycling or hiking and get into the habit of engaging in it. Stretching before and after the exercises important. It is also important to contact me if there are any problems like shortness of breath, chest pain, back pain and joint or muscle pain associated with the exercise. 3. Discussed age appropriate gender specific screening guidelines. Colonoscopy needs to start at age 45 with stool for occult blood as appropriate. There is a new test that can test for genetic abnormalities in the stool sample. This would not replace a colonoscopy but could be used as a screening tool for patients who do not want a colonoscopy. We discussed the importance of early detection of colon cancer. 4. Discussed current gender specific guidelines with respect to breast examination, mammogram and pap smear for early detection of breast and cervical cancer. Patient advised to follow up with these appointments. 5. Discussed safe driving and no use of smart phone while driving 6. Age-appropriate immunizations were discussed. A tetanus booster is needed every 10 years. Flu vaccine is recommended every year just before the start of the flu season. Shingles vaccine is recommended after age 50 but not all insurances cover it. Pneumonia vaccine is given after age 65 unless there are certain comorbidities for which it is started earlier. Newly approved RSV vaccine was also discussed COVID booster discussed 7. Diagnostic labs were discussed. These could include CBC CMP and lipids with fasting blood glucose and insulin levels. Vitamin D and hemoglobin A1c testing might be appropriate. 8. Patient and I had a detailed discussion on healthcare proxy and will follow. . I gave form for that as well as [place] order for life sustaining treatment. I screen for depression and she seems to be okay. I counseled on elimination of refined carbohydrates and processed food 9. Patient will be tested for dementia by neuropsychologica l testing if warranted and deemed appropriate by provider Of note, some information is being carried forward from prior records for informational purposes only and is being cited so that efficiency, safety and quality of the patient's care is not compromised This note was prepared using voice recognition software and direct typing Please excuse inadvertent hatchery man or typing errors, or uncorrected word substitutions Although every attempt has been made by the provider to proofread this document, occasional misspellings and typographical errors may still be present Due to the previous pandemic, and the use of personal protective equipment (PPE) This may decrease voice recognition accuracy Inadvertent hatchery man errors may occur 06/17/2024 Hyperlipidemia, unspecified (ICD-10 - E78.5) Acute Concerns/Problem List: 06/17/2024 Chronic conditions are stable Will see him back for Medicare visit in the spring with updated labs. Of note, some information is being carried forward from prior records for informational purposes only and is being cited so that efficiency, safety and quality of the patient's care is not compromised This note was prepared using voice recognition software and direct typing Please excuse inadvertent hatchery man or typing errors, or uncorrected word substitutions Although every attempt has been made by the provider to proofread this document, occasional misspellings and typographical errors may still be present Due to the previous pandemic, and the use of personal protective equipment (PPE) This may decrease voice recognition accuracy Inadvertent hatchery man errors may occur 12/18/2023 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 He is compliant on amlodipine with no unwanted side effects. Continue amlodipine as prescribed. Cerebral palsy: He is ambulating well with crutches. He admits to feeling well overall and has no other concerns. Home care services provided. GERD: He is currently taking Omeprazole with good effect and no unwanted side effects. Refill omeprazole. Colorectal/EGD 01/2023 DANTE Alvarado 4 mo f/u Reviewed with patient the importance of medication and treatment plan compliance with BP goal of less then 140/90 per JNC 8 guidelines based on patient's age. This will ensure optimal health outcomes and prevent target organ damage. Made aware that uncontrolled hypertension may be silent and result in a stroke, heart attack, renal failure or even . Discussed the rationale for individualized medication regimen and the effects of their BP. Instructed to seek emergent care if the patient develops a headache, blurry vision, dizziness, chest pain or pressure. Patient seen for MEDICARE WELLNESS VISIT and examined. Comprehensive discussion was done on the following. 1. Nutrition: It is important to follow a healthy diet based on lots of vegetables and legumes and good fat. Avoid processed food and processed carbohydrates. Learn to prepare your own meals. Learn to read labels and avoid high fructose corn syrup, processed chemicals added to increase shelf life and preprepared meals. Avoid fast foods. Learn to eat slowly and plan meals for a week. Try to count calories and be mindful off daily calorie intake. Get into the habit of keeping an eye on your weight by using an appropriate scale. Learn to log exercise and discussed fitness Apps like [employer] which can help keep log off calories taken versus calories burned. Local food should be preferred. Discussed Dirty Dozen Versus Clean Fifteen. Discussed healthy supplements like fish oil, Tumeric, Curcumin, Melatonin, Resveratrol, Probiotics, Vitamin-D, Alpha-Lipoic acid, Vitamin-D and coconut oil. 2. It is important to exercise regularly. Is a good habit to walk at least 30-45 minutes a day. Gentle weightlifting with standard precautions to protect the back. Finding activity like cycling or hiking and get into the habit of engaging in it. Stretching before and after the exercises important. It is also important to contact me if there are any problems like shortness of breath, chest pain, back pain and joint or muscle pain associated with the exercise. 3. Discussed age appropriate gender specific screening guidelines. Colonoscopy needs to start at age 45 with stool for occult blood as appropriate. There is a new test that can test for genetic abnormalities in the stool sample. This would not replace a colonoscopy but could be used as a screening tool for patients who do not want a colonoscopy. We discussed the importance of early detection of colon cancer. 4. Discussed current gender specific guidelines with respect to breast examination, mammogram and pap smear for early detection of breast and cervical cancer. Patient advised to follow up with these appointments. 5. Discussed safe driving and no use of smart phone while driving 6. Age-appropriate immunizations were discussed. A tetanus booster is needed every 10 years. Flu vaccine is recommended every year just before the start of the flu season. Shingles vaccine is recommended after age 50 but not all insurances cover it. Pneumonia vaccine is given after age 65 unless there are certain comorbidities for which it is started earlier. Newly approved RSV vaccine was also discussed COVID booster discussed 7. Diagnostic labs were discussed. These could include CBC CMP and lipids with fasting blood glucose and insulin levels. Vitamin D and hemoglobin A1c testing might be appropriate. 8. Patient and I had a detailed discussion on healthcare proxy and will follow. . I gave form for that as well as [place] order for life sustaining treatment. I screen for depression and she seems to be okay. I counseled on elimination of refined carbohydrates and processed food 9. Patient will be tested for dementia by neuropsychologica l testing if warranted and deemed appropriate by provider Of note, some information is being carried forward from prior records for informational purposes only and is being cited so that efficiency, safety and quality of the patient's care is not compromised This note was prepared using voice recognition software and direct typing Please excuse inadvertent hatchery man or typing errors, or uncorrected word substitutions Although every attempt has been made by the provider to proofread this document, occasional misspellings and typographical errors may still be present Due to the previous pandemic, and the use of personal protective equipment (PPE) This may decrease voice recognition accuracy Inadvertent hatchery man errors may occur 10/28/2023 Gastro-esophagea l reflux disease with esophagitis (ICD-10 - K21.0) patient presents today for [facility] Acute Concerns/Problem List: 10/28/2023 #HTN: BP is stable. He is compliant on amlodipine with no unwanted side effects. -Continue amlodipine as prescribed. #Cerebral palsy: He is ambulating well with crutches. He admits to feeling well overall and has no other concerns. Home care services provided. #GERD: He is currently taking Omeprazole with good effect and no unwanted side effects. - Refill omeprazole. supplement VIt D Colorectal/EGD 01/2023 DANTE Alvarado Reviewed with patient the importance of medication and treatment plan compliance with BP goal of less then 140/90 per JNC 8 guidelines based on patient's age. This will ensure optimal health outcomes and prevent target organ damage. Made aware that uncontrolled hypertension may be silent and result in a stroke, heart attack, renal failure or even . Discussed the rationale for individualized medication regimen and the effects of their BP. Instructed to seek emergent care if the patient develops a headache, blurry vision, dizziness, chest pain or pressure. Patient seen for MEDICARE WELLNESS VISIT and examined. Comprehensive discussion was done on the following. 1. Nutrition: It is important to follow a healthy diet based on lots of vegetables and legumes and good fat. Avoid processed food and processed carbohydrates. Learn to prepare your own meals. Learn to read labels and avoid high fructose corn syrup, processed chemicals added to increase shelf life and preprepared meals. Avoid fast foods. Learn to eat slowly and plan meals for a week. Try to count calories and be mindful off daily calorie intake. Get into the habit of keeping an eye on your weight by using an appropriate scale. Learn to log exercise and discussed fitness Apps like [employer] which can help keep log off calories taken versus calories burned. Local food should be preferred. Discussed Dirty Dozen Versus Clean Fifteen. Discussed healthy supplements like fish oil, Tumeric, Curcumin, Melatonin, Resveratrol, Probiotics, Vitamin-D, Alpha-Lipoic acid, Vitamin-D and coconut oil. 2. It is important to exercise regularly. Is a good habit to walk at least 30-45 minutes a day. Gentle weightlifting with standard precautions to protect the back. Finding activity like cycling or hiking and get into the habit of engaging in it. Stretching before and after the exercises important. It is also important to contact me if there are any problems like shortness of breath, chest pain, back pain and joint or muscle pain associated with the exercise. 3. Discussed age appropriate gender specific screening guidelines. Colonoscopy needs to start at age 45 with stool for occult blood as appropriate. There is a new test that can test for genetic abnormalities in the stool sample. This would not replace a colonoscopy but could be used as a screening tool for patients who do not want a colonoscopy. We discussed the importance of early detection of colon cancer. 4. Discussed current gender specific guidelines with respect to breast examination, mammogram and pap smear for early detection of breast and cervical cancer. Patient advised to follow up with these appointments. 5. Discussed safe driving and no use of smart phone while driving 6. Age-appropriate immunizations were discussed. A tetanus booster is needed every 10 years. Flu vaccine is recommended every year just before the start of the flu season. Shingles vaccine is recommended after age 50 but not all insurances cover it. Pneumonia vaccine is given after age 65 unless there are certain comorbidities for which it is started earlier. Newly approved RSV vaccine was also discussed COVID booster discussed 7. Diagnostic labs were discussed. These could include CBC CMP and lipids with fasting blood glucose and insulin levels. Vitamin D and hemoglobin A1c testing might be appropriate. 8. Patient and I had a detailed discussion on healthcare proxy and will follow. . I gave form for that as well as [place] order for life sustaining treatment. I screen for depression and she seems to be okay. I counseled on elimination of refined carbohydrates and processed food 9. Patient will be tested for dementia by neuropsychologica l testing if warranted and deemed appropriate by provider Of note, some information is being carried forward from prior records for informational purposes only and is being cited so that efficiency, safety and quality of the patient's care is not compromised This note was prepared using voice recognition software and direct typing Please excuse inadvertent hatchery man or typing errors, or uncorrected word substitutions Although every attempt has been made by the provider to proofread this document, occasional misspellings and typographical errors may still be present Due to the previous pandemic, and the use of personal protective equipment (PPE) This may decrease voice recognition accuracy Inadvertent hatchery man errors may occur 10/28/2023 Hyperlipidemia, unspecified (ICD-10 - E78.5) patient presents today for [facility] Acute Concerns/Problem List: 10/28/2023 #HTN: BP is stable. He is compliant on amlodipine with no unwanted side effects. -Continue amlodipine as prescribed. #Cerebral palsy: He is ambulating well with crutches. He admits to feeling well overall and has no other concerns. Home care services provided. #GERD: He is currently taking Omeprazole with good effect and no unwanted side effects. - Refill omeprazole. supplement VIt D Colorectal/EGD 01/2023 DANTE Alvarado Reviewed with patient the importance of medication and treatment plan compliance with BP goal of less then 140/90 per JNC 8 guidelines based on patient's age. This will ensure optimal health outcomes and prevent target organ damage. Made aware that uncontrolled hypertension may be silent and result in a stroke, heart attack, renal failure or even . Discussed the rationale for individualized medication regimen and the effects of their BP. Instructed to seek emergent care if the patient develops a headache, blurry vision, dizziness, chest pain or pressure. Patient seen for MEDICARE WELLNESS VISIT and examined. Comprehensive discussion was done on the following. 1. Nutrition: It is important to follow a healthy diet based on lots of vegetables and legumes and good fat. Avoid processed food and processed carbohydrates. Learn to prepare your own meals. Learn to read labels and avoid high fructose corn syrup, processed chemicals added to increase shelf life and preprepared meals. Avoid fast foods. Learn to eat slowly and plan meals for a week. Try to count calories and be mindful off daily calorie intake. Get into the habit of keeping an eye on your weight by using an appropriate scale. Learn to log exercise and discussed fitness Apps like [employer] which can help keep log off calories taken versus calories burned. Local food should be preferred. Discussed Dirty Dozen Versus Clean Fifteen. Discussed healthy supplements like fish oil, Tumeric, Curcumin, Melatonin, Resveratrol, Probiotics, Vitamin-D, Alpha-Lipoic acid, Vitamin-D and coconut oil. 2. It is important to exercise regularly. Is a good habit to walk at least 30-45 minutes a day. Gentle weightlifting with standard precautions to protect the back. Finding activity like cycling or hiking and get into the habit of engaging in it. Stretching before and after the exercises important. It is also important to contact me if there are any problems like shortness of breath, chest pain, back pain and joint or muscle pain associated with the exercise. 3. Discussed age appropriate gender specific screening guidelines. Colonoscopy needs to start at age 45 with stool for occult blood as appropriate. There is a new test that can test for genetic abnormalities in the stool sample. This would not replace a colonoscopy but could be used as a screening tool for patients who do not want a colonoscopy. We discussed the importance of early detection of colon cancer. 4. Discussed current gender specific guidelines with respect to breast examination, mammogram and pap smear for early detection of breast and cervical cancer. Patient advised to follow up with these appointments. 5. Discussed safe driving and no use of smart phone while driving 6. Age-appropriate immunizations were discussed. A tetanus booster is needed every 10 years. Flu vaccine is recommended every year just before the start of the flu season. Shingles vaccine is recommended after age 50 but not all insurances cover it. Pneumonia vaccine is given after age 65 unless there are certain comorbidities for which it is started earlier. Newly approved RSV vaccine was also discussed COVID booster discussed 7. Diagnostic labs were discussed. These could include CBC CMP and lipids with fasting blood glucose and insulin levels. Vitamin D and hemoglobin A1c testing might be appropriate. 8. Patient and I had a detailed discussion on healthcare proxy and will follow. . I gave form for that as well as [place] order for life sustaining treatment. I screen for depression and she seems to be okay. I counseled on elimination of refined carbohydrates and processed food 9. Patient will be tested for dementia by neuropsychologica l testing if warranted and deemed appropriate by provider Of note, some information is being carried forward from prior records for informational purposes only and is being cited so that efficiency, safety and quality of the patient's care is not compromised This note was prepared using voice recognition software and direct typing Please excuse inadvertent hatchery man or typing errors, or uncorrected word substitutions Although every attempt has been made by the provider to proofread this document, occasional misspellings and typographical errors may still be present Due to the previous pandemic, and the use of personal protective equipment (PPE) This may decrease voice recognition accuracy Inadvertent hatchery man errors may occur 12/18/2023 Essential (primary) hypertension (ICD-10 - I10) Patient presents today for [facility] Acute Concerns/Problem List: 12/18/2023 We recommend RSV vaccination HTN: BP is stable. He is compliant on amlodipine with no unwanted side effects. Continue amlodipine as prescribed. Cerebral palsy: He is ambulating well with crutches. He admits to feeling well overall and has no other concerns. Home care services provided. GERD: He is currently taking Omeprazole with good effect and no unwanted side effects. Refill omeprazole. Colorectal/EGD 01/2023 DANTE Alvarado 4 mo f/u Reviewed with patient the importance of medication and treatment plan compliance with BP goal of less then 140/90 per JNC 8 guidelines based on patient's age. This will ensure optimal health outcomes and prevent target organ damage. Made aware that uncontrolled hypertension may be silent and result in a stroke, heart attack, renal failure or even . Discussed the rationale for individualized medication regimen and the effects of their BP. Instructed to seek emergent care if the patient develops a headache, blurry vision, dizziness, chest pain or pressure. Patient seen for MEDICARE WELLNESS VISIT and examined. Comprehensive discussion was done on the following. 1. Nutrition: It is important to follow a healthy diet based on lots of vegetables and legumes and good fat. Avoid processed food and processed carbohydrates. Learn to prepare your own meals. Learn to read labels and avoid high fructose corn syrup, processed chemicals added to increase shelf life and preprepared meals. Avoid fast foods. Learn to eat slowly and plan meals for a week. Try to count calories and be mindful off daily calorie intake. Get into the habit of keeping an eye on your weight by using an appropriate scale. Learn to log exercise and discussed fitness Apps like [employer] which can help keep log off calories taken versus calories burned. Local food should be preferred. Discussed Dirty Dozen Versus Clean Fifteen. Discussed healthy supplements like fish oil, Tumeric, Curcumin, Melatonin, Resveratrol, Probiotics, Vitamin-D, Alpha-Lipoic acid, Vitamin-D and coconut oil. 2. It is important to exercise regularly. Is a good habit to walk at least 30-45 minutes a day. Gentle weightlifting with standard precautions to protect the back. Finding activity like cycling or hiking and get into the habit of engaging in it. Stretching before and after the exercises important. It is also important to contact me if there are any problems like shortness of breath, chest pain, back pain and joint or muscle pain associated with the exercise. 3. Discussed age appropriate gender specific screening guidelines. Colonoscopy needs to start at age 45 with stool for occult blood as appropriate. There is a new test that can test for genetic abnormalities in the stool sample. This would not replace a colonoscopy but could be used as a screening tool for patients who do not want a colonoscopy. We discussed the importance of early detection of colon cancer. 4. Discussed current gender specific guidelines with respect to breast examination, mammogram and pap smear for early detection of breast and cervical cancer. Patient advised to follow up with these appointments. 5. Discussed safe driving and no use of smart phone while driving 6. Age-appropriate immunizations were discussed. A tetanus booster is needed every 10 years. Flu vaccine is recommended every year just before the start of the flu season. Shingles vaccine is recommended after age 50 but not all insurances cover it. Pneumonia vaccine is given after age 65 unless there are certain comorbidities for which it is started earlier. Newly approved RSV vaccine was also discussed COVID booster discussed 7. Diagnostic labs were discussed. These could include CBC CMP and lipids with fasting blood glucose and insulin levels. Vitamin D and hemoglobin A1c testing might be appropriate. 8. Patient and I had a detailed discussion on healthcare proxy and will follow. . I gave form for that as well as [place] order for life sustaining treatment. I screen for depression and she seems to be okay. I counseled on elimination of refined carbohydrates and processed food 9. Patient will be tested for dementia by neuropsychologica l testing if warranted and deemed appropriate by provider Of note, some information is being carried forward from prior records for informational purposes only and is being cited so that efficiency, safety and quality of the patient's care is not compromised This note was prepared using voice recognition software and direct typing Please excuse inadvertent hatchery man or typing errors, or uncorrected word substitutions Although every attempt has been made by the provider to proofread this document, occasional misspellings and typographical errors may still be present Due to the previous pandemic, and the use of personal protective equipment (PPE) This may decrease voice recognition accuracy Inadvertent hatchery man errors may occur 06/17/2024 Hypothyroidism, unspecified type (ICD-10 - E03.9) Acute Concerns/Problem List: 06/17/2024 Chronic conditions are stable Will see him back for Medicare visit in the spring with updated labs. Of note, some information is being carried forward from prior records for informational purposes only and is being cited so that efficiency, safety and quality of the patient's care is not compromised This note was prepared using voice recognition software and direct typing Please excuse inadvertent hatchery man or typing errors, or uncorrected word substitutions Although every attempt has been made by the provider to proofread this document, occasional misspellings and typographical errors may still be present Due to the previous pandemic, and the use of personal protective equipment (PPE) This may decrease voice recognition accuracy Inadvertent hatchery man errors may occur 06/17/2024 Pre-diabetes (ICD-10 - R73.03) Acute Concerns/Problem List: 06/17/2024 Chronic conditions are stable Will see him back for Medicare visit in the spring with updated labs. Of note, some information is being carried forward from prior records for informational purposes only and is being cited so that efficiency, safety and quality of the patient's care is not compromised This note was prepared using voice recognition software and direct typing Please excuse inadvertent hatchery man or typing errors, or uncorrected word substitutions Although every attempt has been made by the provider to proofread this document, occasional misspellings and typographical errors may still be present Due to the previous pandemic, and the use of personal protective equipment (PPE) This may decrease voice recognition accuracy Inadvertent hatchery man errors may occur 12/18/2023 Gastro-esophagea l reflux disease with esophagitis (ICD-10 - K21.0) Patient presents today for [facility] Acute Concerns/Problem List: 12/18/2023 We recommend RSV vaccination HTN: BP is stable. He is compliant on amlodipine with no unwanted side effects. Continue amlodipine as prescribed. Cerebral palsy: He is ambulating well with crutches. He admits to feeling well overall and has no other concerns. Home care services provided. GERD: He is currently taking Omeprazole with good effect and no unwanted side effects. Refill omeprazole. Colorectal/EGD 01/2023 DANTE Alvarado 4 mo f/u Reviewed with patient the importance of medication and treatment plan compliance with BP goal of less then 140/90 per JNC 8 guidelines based on patient's age. This will ensure optimal health outcomes and prevent target organ damage. Made aware that uncontrolled hypertension may be silent and result in a stroke, heart attack, renal failure or even . Discussed the rationale for individualized medication regimen and the effects of their BP. Instructed to seek emergent care if the patient develops a headache, blurry vision, dizziness, chest pain or pressure. Patient seen for MEDICARE WELLNESS VISIT and examined. Comprehensive discussion was done on the following. 1. Nutrition: It is important to follow a healthy diet based on lots of vegetables and legumes and good fat. Avoid processed food and processed carbohydrates. Learn to prepare your own meals. Learn to read labels and avoid high fructose corn syrup, processed chemicals added to increase shelf life and preprepared meals. Avoid fast foods. Learn to eat slowly and plan meals for a week. Try to count calories and be mindful off daily calorie intake. Get into the habit of keeping an eye on your weight by using an appropriate scale. Learn to log exercise and discussed fitness Apps like [employer] which can help keep log off calories taken versus calories burned. Local food should be preferred. Discussed Dirty Dozen Versus Clean Fifteen. Discussed healthy supplements like fish oil, Tumeric, Curcumin, Melatonin, Resveratrol, Probiotics, Vitamin-D, Alpha-Lipoic acid, Vitamin-D and coconut oil. 2. It is important to exercise regularly. Is a good habit to walk at least 30-45 minutes a day. Gentle weightlifting with standard precautions to protect the back. Finding activity like cycling or hiking and get into the habit of engaging in it. Stretching before and after the exercises important. It is also important to contact me if there are any problems like shortness of breath, chest pain, back pain and joint or muscle pain associated with the exercise. 3. Discussed age appropriate gender specific screening guidelines. Colonoscopy needs to start at age 45 with stool for occult blood as appropriate. There is a new test that can test for genetic abnormalities in the stool sample. This would not replace a colonoscopy but could be used as a screening tool for patients who do not want a colonoscopy. We discussed the importance of early detection of colon cancer. 4. Discussed current gender specific guidelines with respect to breast examination, mammogram and pap smear for early detection of breast and cervical cancer. Patient advised to follow up with these appointments. 5. Discussed safe driving and no use of smart phone while driving 6. Age-appropriate immunizations were discussed. A tetanus booster is needed every 10 years. Flu vaccine is recommended every year just before the start of the flu season. Shingles vaccine is recommended after age 50 but not all insurances cover it. Pneumonia vaccine is given after age 65 unless there are certain comorbidities for which it is started earlier. Newly approved RSV vaccine was also discussed COVID booster discussed 7. Diagnostic labs were discussed. These could include CBC CMP and lipids with fasting blood glucose and insulin levels. Vitamin D and hemoglobin A1c testing might be appropriate. 8. Patient and I had a detailed discussion on healthcare proxy and will follow. . I gave form for that as well as [place] order for life sustaining treatment. I screen for depression and she seems to be okay. I counseled on elimination of refined carbohydrates and processed food 9. Patient will be tested for dementia by neuropsychologica l testing if warranted and deemed appropriate by provider Of note, some information is being carried forward from prior records for informational purposes only and is being cited so that efficiency, safety and quality of the patient's care is not compromised This note was prepared using voice recognition software and direct typing Please excuse inadvertent hatchery man or typing errors, or uncorrected word substitutions Although every attempt has been made by the provider to proofread this document, occasional misspellings and typographical errors may still be present Due to the previous pandemic, and the use of personal protective equipment (PPE) This may decrease voice recognition accuracy Inadvertent hatchery man errors may occur 10/28/2023 Hypothyroidism, unspecified type (ICD-10 - E03.9) patient presents today for [facility] Acute Concerns/Problem List: 10/28/2023 #HTN: BP is stable. He is compliant on amlodipine with no unwanted side effects. -Continue amlodipine as prescribed. #Cerebral palsy: He is ambulating well with crutches. He admits to feeling well overall and has no other concerns. Home care services provided. #GERD: He is currently taking Omeprazole with good effect and no unwanted side effects. - Refill omeprazole. supplement VIt D Colorectal/EGD 01/2023 DANTE Alvarado Reviewed with patient the importance of medication and treatment plan compliance with BP goal of less then 140/90 per JNC 8 guidelines based on patient's age. This will ensure optimal health outcomes and prevent target organ damage. Made aware that uncontrolled hypertension may be silent and result in a stroke, heart attack, renal failure or even . Discussed the rationale for individualized medication regimen and the effects of their BP. Instructed to seek emergent care if the patient develops a headache, blurry vision, dizziness, chest pain or pressure. Patient seen for MEDICARE WELLNESS VISIT and examined. Comprehensive discussion was done on the following. 1. Nutrition: It is important to follow a healthy diet based on lots of vegetables and legumes and good fat. Avoid processed food and processed carbohydrates. Learn to prepare your own meals. Learn to read labels and avoid high fructose corn syrup, processed chemicals added to increase shelf life and preprepared meals. Avoid fast foods. Learn to eat slowly and plan meals for a week. Try to count calories and be mindful off daily calorie intake. Get into the habit of keeping an eye on your weight by using an appropriate scale. Learn to log exercise and discussed fitness Apps like [employer] which can help keep log off calories taken versus calories burned. Local food should be preferred. Discussed Dirty Dozen Versus Clean Fifteen. Discussed healthy supplements like fish oil, Tumeric, Curcumin, Melatonin, Resveratrol, Probiotics, Vitamin-D, Alpha-Lipoic acid, Vitamin-D and coconut oil. 2. It is important to exercise regularly. Is a good habit to walk at least 30-45 minutes a day. Gentle weightlifting with standard precautions to protect the back. Finding activity like cycling or hiking and get into the habit of engaging in it. Stretching before and after the exercises important. It is also important to contact me if there are any problems like shortness of breath, chest pain, back pain and joint or muscle pain associated with the exercise. 3. Discussed age appropriate gender specific screening guidelines. Colonoscopy needs to start at age 45 with stool for occult blood as appropriate. There is a new test that can test for genetic abnormalities in the stool sample. This would not replace a colonoscopy but could be used as a screening tool for patients who do not want a colonoscopy. We discussed the importance of early detection of colon cancer. 4. Discussed current gender specific guidelines with respect to breast examination, mammogram and pap smear for early detection of breast and cervical cancer. Patient advised to follow up with these appointments. 5. Discussed safe driving and no use of smart phone while driving 6. Age-appropriate immunizations were discussed. A tetanus booster is needed every 10 years. Flu vaccine is recommended every year just before the start of the flu season. Shingles vaccine is recommended after age 50 but not all insurances cover it. Pneumonia vaccine is given after age 65 unless there are certain comorbidities for which it is started earlier. Newly approved RSV vaccine was also discussed COVID booster discussed 7. Diagnostic labs were discussed. These could include CBC CMP and lipids with fasting blood glucose and insulin levels. Vitamin D and hemoglobin A1c testing might be appropriate. 8. Patient and I had a detailed discussion on healthcare proxy and will follow. . I gave form for that as well as [place] order for life sustaining treatment. I screen for depression and she seems to be okay. I counseled on elimination of refined carbohydrates and processed food 9. Patient will be tested for dementia by neuropsychologica l testing if warranted and deemed appropriate by provider Of note, some information is being carried forward from prior records for informational purposes only and is being cited so that efficiency, safety and quality of the patient's care is not compromised This note was prepared using voice recognition software and direct typing Please excuse inadvertent hatchery man or typing errors, or uncorrected word substitutions Although every attempt has been made by the provider to proofread this document, occasional misspellings and typographical errors may still be present Due to the previous pandemic, and the use of personal protective equipment (PPE) This may decrease voice recognition accuracy Inadvertent hatchery man errors may occur 10/28/2023 Pre-diabetes (ICD-10 - R73.03) patient presents today for [facility] Acute Concerns/Problem List: 10/28/2023 #HTN: BP is stable. He is compliant on amlodipine with no unwanted side effects. -Continue amlodipine as prescribed. #Cerebral palsy: He is ambulating well with crutches. He admits to feeling well overall and has no other concerns. Home care services provided. #GERD: He is currently taking Omeprazole with good effect and no unwanted side effects. - Refill omeprazole. supplement VIt D Colorectal/EGD 01/2023 DANTE Alvarado Reviewed with patient the importance of medication and treatment plan compliance with BP goal of less then 140/90 per JNC 8 guidelines based on patient's age. This will ensure optimal health outcomes and prevent target organ damage. Made aware that uncontrolled hypertension may be silent and result in a stroke, heart attack, renal failure or even . Discussed the rationale for individualized medication regimen and the effects of their BP. Instructed to seek emergent care if the patient develops a headache, blurry vision, dizziness, chest pain or pressure. Patient seen for MEDICARE WELLNESS VISIT and examined. Comprehensive discussion was done on the following. 1. Nutrition: It is important to follow a healthy diet based on lots of vegetables and legumes and good fat. Avoid processed food and processed carbohydrates. Learn to prepare your own meals. Learn to read labels and avoid high fructose corn syrup, processed chemicals added to increase shelf life and preprepared meals. Avoid fast foods. Learn to eat slowly and plan meals for a week. Try to count calories and be mindful off daily calorie intake. Get into the habit of keeping an eye on your weight by using an appropriate scale. Learn to log exercise and discussed fitness Apps like [employer] which can help keep log off calories taken versus calories burned. Local food should be preferred. Discussed Dirty Dozen Versus Clean Fifteen. Discussed healthy supplements like fish oil, Tumeric, Curcumin, Melatonin, Resveratrol, Probiotics, Vitamin-D, Alpha-Lipoic acid, Vitamin-D and coconut oil. 2. It is important to exercise regularly. Is a good habit to walk at least 30-45 minutes a day. Gentle weightlifting with standard precautions to protect the back. Finding activity like cycling or hiking and get into the habit of engaging in it. Stretching before and after the exercises important. It is also important to contact me if there are any problems like shortness of breath, chest pain, back pain and joint or muscle pain associated with the exercise. 3. Discussed age appropriate gender specific screening guidelines. Colonoscopy needs to start at age 45 with stool for occult blood as appropriate. There is a new test that can test for genetic abnormalities in the stool sample. This would not replace a colonoscopy but could be used as a screening tool for patients who do not want a colonoscopy. We discussed the importance of early detection of colon cancer. 4. Discussed current gender specific guidelines with respect to breast examination, mammogram and pap smear for early detection of breast and cervical cancer. Patient advised to follow up with these appointments. 5. Discussed safe driving and no use of smart phone while driving 6. Age-appropriate immunizations were discussed. A tetanus booster is needed every 10 years. Flu vaccine is recommended every year just before the start of the flu season. Shingles vaccine is recommended after age 50 but not all insurances cover it. Pneumonia vaccine is given after age 65 unless there are certain comorbidities for which it is started earlier. Newly approved RSV vaccine was also discussed COVID booster discussed 7. Diagnostic labs were discussed. These could include CBC CMP and lipids with fasting blood glucose and insulin levels. Vitamin D and hemoglobin A1c testing might be appropriate. 8. Patient and I had a detailed discussion on healthcare proxy and will follow. . I gave form for that as well as [place] order for life sustaining treatment. I screen for depression and she seems to be okay. I counseled on elimination of refined carbohydrates and processed food 9. Patient will be tested for dementia by neuropsychologica l testing if warranted and deemed appropriate by provider Of note, some information is being carried forward from prior records for informational purposes only and is being cited so that efficiency, safety and quality of the patient's care is not compromised This note was prepared using voice recognition software and direct typing Please excuse inadvertent hatchery man or typing errors, or uncorrected word substitutions Although every attempt has been made by the provider to proofread this document, occasional misspellings and typographical errors may still be present Due to the previous pandemic, and the use of personal protective equipment (PPE) This may decrease voice recognition accuracy Inadvertent hatchery man errors may occur 12/18/2023 Hyperlipidemia, unspecified (ICD-10 - E78.5) Patient presents today for [facility] Acute Concerns/Problem List: 12/18/2023 We recommend RSV vaccination HTN: BP is stable. He is compliant on amlodipine with no unwanted side effects. Continue amlodipine as prescribed. Cerebral palsy: He is ambulating well with crutches. He admits to feeling well overall and has no other concerns. Home care services provided. GERD: He is currently taking Omeprazole with good effect and no unwanted side effects. Refill omeprazole. Colorectal/EGD 01/2023 DANTE Alvarado 4 mo f/u Reviewed with patient the importance of medication and treatment plan compliance with BP goal of less then 140/90 per JNC 8 guidelines based on patient's age. This will ensure optimal health outcomes and prevent target organ damage. Made aware that uncontrolled hypertension may be silent and result in a stroke, heart attack, renal failure or even . Discussed the rationale for individualized medication regimen and the effects of their BP. Instructed to seek emergent care if the patient develops a headache, blurry vision, dizziness, chest pain or pressure. Patient seen for MEDICARE WELLNESS VISIT and examined. Comprehensive discussion was done on the following. 1. Nutrition: It is important to follow a healthy diet based on lots of vegetables and legumes and good fat. Avoid processed food and processed carbohydrates. Learn to prepare your own meals. Learn to read labels and avoid high fructose corn syrup, processed chemicals added to increase shelf life and preprepared meals. Avoid fast foods. Learn to eat slowly and plan meals for a week. Try to count calories and be mindful off daily calorie intake. Get into the habit of keeping an eye on your weight by using an appropriate scale. Learn to log exercise and discussed fitness Apps like [employer] which can help keep log off calories taken versus calories burned. Local food should be preferred. Discussed Dirty Dozen Versus Clean Fifteen. Discussed healthy supplements like fish oil, Tumeric, Curcumin, Melatonin, Resveratrol, Probiotics, Vitamin-D, Alpha-Lipoic acid, Vitamin-D and coconut oil. 2. It is important to exercise regularly. Is a good habit to walk at least 30-45 minutes a day. Gentle weightlifting with standard precautions to protect the back. Finding activity like cycling or hiking and get into the habit of engaging in it. Stretching before and after the exercises important. It is also important to contact me if there are any problems like shortness of breath, chest pain, back pain and joint or muscle pain associated with the exercise. 3. Discussed age appropriate gender specific screening guidelines. Colonoscopy needs to start at age 45 with stool for occult blood as appropriate. There is a new test that can test for genetic abnormalities in the stool sample. This would not replace a colonoscopy but could be used as a screening tool for patients who do not want a colonoscopy. We discussed the importance of early detection of colon cancer. 4. Discussed current gender specific guidelines with respect to breast examination, mammogram and pap smear for early detection of breast and cervical cancer. Patient advised to follow up with these appointments. 5. Discussed safe driving and no use of smart phone while driving 6. Age-appropriate immunizations were discussed. A tetanus booster is needed every 10 years. Flu vaccine is recommended every year just before the start of the flu season. Shingles vaccine is recommended after age 50 but not all insurances cover it. Pneumonia vaccine is given after age 65 unless there are certain comorbidities for which it is started earlier. Newly approved RSV vaccine was also discussed COVID booster discussed 7. Diagnostic labs were discussed. These could include CBC CMP and lipids with fasting blood glucose and insulin levels. Vitamin D and hemoglobin A1c testing might be appropriate. 8. Patient and I had a detailed discussion on healthcare proxy and will follow. . I gave form for that as well as [place] order for life sustaining treatment. I screen for depression and she seems to be okay. I counseled on elimination of refined carbohydrates and processed food 9. Patient will be tested for dementia by neuropsychologica l testing if warranted and deemed appropriate by provider Of note, some information is being carried forward from prior records for informational purposes only and is being cited so that efficiency, safety and quality of the patient's care is not compromised This note was prepared using voice recognition software and direct typing Please excuse inadvertent hatchery man or typing errors, or uncorrected word substitutions Although every attempt has been made by the provider to proofread this document, occasional misspellings and typographical errors may still be present Due to the previous pandemic, and the use of personal protective equipment (PPE) This may decrease voice recognition accuracy Inadvertent hatchery man errors may occur 12/18/2023 Hypothyroidism, unspecified type (ICD-10 - E03.9) Patient presents today for [facility] Acute Concerns/Problem List: 12/18/2023 We recommend RSV vaccination HTN: BP is stable. He is compliant on amlodipine with no unwanted side effects. Continue amlodipine as prescribed. Cerebral palsy: He is ambulating well with crutches. He admits to feeling well overall and has no other concerns. Home care services provided. GERD: He is currently taking Omeprazole with good effect and no unwanted side effects. Refill omeprazole. Colorectal/EGD 01/2023 DANTE Alvarado 4 mo f/u Reviewed with patient the importance of medication and treatment plan compliance with BP goal of less then 140/90 per JNC 8 guidelines based on patient's age. This will ensure optimal health outcomes and prevent target organ damage. Made aware that uncontrolled hypertension may be silent and result in a stroke, heart attack, renal failure or even . Discussed the rationale for individualized medication regimen and the effects of their BP. Instructed to seek emergent care if the patient develops a headache, blurry vision, dizziness, chest pain or pressure. Patient seen for MEDICARE WELLNESS VISIT and examined. Comprehensive discussion was done on the following. 1. Nutrition: It is important to follow a healthy diet based on lots of vegetables and legumes and good fat. Avoid processed food and processed carbohydrates. Learn to prepare your own meals. Learn to read labels and avoid high fructose corn syrup, processed chemicals added to increase shelf life and preprepared meals. Avoid fast foods. Learn to eat slowly and plan meals for a week. Try to count calories and be mindful off daily calorie intake. Get into the habit of keeping an eye on your weight by using an appropriate scale. Learn to log exercise and discussed fitness Apps like [employer] which can help keep log off calories taken versus calories burned. Local food should be preferred. Discussed Dirty Dozen Versus Clean Fifteen. Discussed healthy supplements like fish oil, Tumeric, Curcumin, Melatonin, Resveratrol, Probiotics, Vitamin-D, Alpha-Lipoic acid, Vitamin-D and coconut oil. 2. It is important to exercise regularly. Is a good habit to walk at least 30-45 minutes a day. Gentle weightlifting with standard precautions to protect the back. Finding activity like cycling or hiking and get into the habit of engaging in it. Stretching before and after the exercises important. It is also important to contact me if there are any problems like shortness of breath, chest pain, back pain and joint or muscle pain associated with the exercise. 3. Discussed age appropriate gender specific screening guidelines. Colonoscopy needs to start at age 45 with stool for occult blood as appropriate. There is a new test that can test for genetic abnormalities in the stool sample. This would not replace a colonoscopy but could be used as a screening tool for patients who do not want a colonoscopy. We discussed the importance of early detection of colon cancer. 4. Discussed current gender specific guidelines with respect to breast examination, mammogram and pap smear for early detection of breast and cervical cancer. Patient advised to follow up with these appointments. 5. Discussed safe driving and no use of smart phone while driving 6. Age-appropriate immunizations were discussed. A tetanus booster is needed every 10 years. Flu vaccine is recommended every year just before the start of the flu season. Shingles vaccine is recommended after age 50 but not all insurances cover it. Pneumonia vaccine is given after age 65 unless there are certain comorbidities for which it is started earlier. Newly approved RSV vaccine was also discussed COVID booster discussed 7. Diagnostic labs were discussed. These could include CBC CMP and lipids with fasting blood glucose and insulin levels. Vitamin D and hemoglobin A1c testing might be appropriate. 8. Patient and I had a detailed discussion on healthcare proxy and will follow. . I gave form for that as well as [place] order for life sustaining treatment. I screen for depression and she seems to be okay. I counseled on elimination of refined carbohydrates and processed food 9. Patient will be tested for dementia by neuropsychologica l testing if warranted and deemed appropriate by provider Of note, some information is being carried forward from prior records for informational purposes only and is being cited so that efficiency, safety and quality of the patient's care is not compromised This note was prepared using voice recognition software and direct typing Please excuse inadvertent hatchery man or typing errors, or uncorrected word substitutions Although every attempt has been made by the provider to proofread this document, occasional misspellings and typographical errors may still be present Due to the previous pandemic, and the use of personal protective equipment (PPE) This may decrease voice recognition accuracy Inadvertent hatchery man errors may occur 10/28/2023 Encounter for screening for depression (ICD-10 - Z13.31) patient presents today for [facility] Acute Concerns/Problem List: 10/28/2023 #HTN: BP is stable. He is compliant on amlodipine with no unwanted side effects. -Continue amlodipine as prescribed. #Cerebral palsy: He is ambulating well with crutches. He admits to feeling well overall and has no other concerns. Home care services provided. #GERD: He is currently taking Omeprazole with good effect and no unwanted side effects. - Refill omeprazole. supplement VIt D Colorectal/EGD 01/2023 DANTE Alvarado Reviewed with patient the importance of medication and treatment plan compliance with BP goal of less then 140/90 per JNC 8 guidelines based on patient's age. This will ensure optimal health outcomes and prevent target organ damage. Made aware that uncontrolled hypertension may be silent and result in a stroke, heart attack, renal failure or even . Discussed the rationale for individualized medication regimen and the effects of their BP. Instructed to seek emergent care if the patient develops a headache, blurry vision, dizziness, chest pain or pressure. Patient seen for MEDICARE WELLNESS VISIT and examined. Comprehensive discussion was done on the following. 1. Nutrition: It is important to follow a healthy diet based on lots of vegetables and legumes and good fat. Avoid processed food and processed carbohydrates. Learn to prepare your own meals. Learn to read labels and avoid high fructose corn syrup, processed chemicals added to increase shelf life and preprepared meals. Avoid fast foods. Learn to eat slowly and plan meals for a week. Try to count calories and be mindful off daily calorie intake. Get into the habit of keeping an eye on your weight by using an appropriate scale. Learn to log exercise and discussed fitness Apps like [employer] which can help keep log off calories taken versus calories burned. Local food should be preferred. Discussed Dirty Dozen Versus Clean Fifteen. Discussed healthy supplements like fish oil, Tumeric, Curcumin, Melatonin, Resveratrol, Probiotics, Vitamin-D, Alpha-Lipoic acid, Vitamin-D and coconut oil. 2. It is important to exercise regularly. Is a good habit to walk at least 30-45 minutes a day. Gentle weightlifting with standard precautions to protect the back. Finding activity like cycling or hiking and get into the habit of engaging in it. Stretching before and after the exercises important. It is also important to contact me if there are any problems like shortness of breath, chest pain, back pain and joint or muscle pain associated with the exercise. 3. Discussed age appropriate gender specific screening guidelines. Colonoscopy needs to start at age 45 with stool for occult blood as appropriate. There is a new test that can test for genetic abnormalities in the stool sample. This would not replace a colonoscopy but could be used as a screening tool for patients who do not want a colonoscopy. We discussed the importance of early detection of colon cancer. 4. Discussed current gender specific guidelines with respect to breast examination, mammogram and pap smear for early detection of breast and cervical cancer. Patient advised to follow up with these appointments. 5. Discussed safe driving and no use of smart phone while driving 6. Age-appropriate immunizations were discussed. A tetanus booster is needed every 10 years. Flu vaccine is recommended every year just before the start of the flu season. Shingles vaccine is recommended after age 50 but not all insurances cover it. Pneumonia vaccine is given after age 65 unless there are certain comorbidities for which it is started earlier. Newly approved RSV vaccine was also discussed COVID booster discussed 7. Diagnostic labs were discussed. These could include CBC CMP and lipids with fasting blood glucose and insulin levels. Vitamin D and hemoglobin A1c testing might be appropriate. 8. Patient and I had a detailed discussion on healthcare proxy and will follow. . I gave form for that as well as [place] order for life sustaining treatment. I screen for depression and she seems to be okay. I counseled on elimination of refined carbohydrates and processed food 9. Patient will be tested for dementia by neuropsychologica l testing if warranted and deemed appropriate by provider Of note, some information is being carried forward from prior records for informational purposes only and is being cited so that efficiency, safety and quality of the patient's care is not compromised This note was prepared using voice recognition software and direct typing Please excuse inadvertent hatchery man or typing errors, or uncorrected word substitutions Although every attempt has been made by the provider to proofread this document, occasional misspellings and typographical errors may still be present Due to the previous pandemic, and the use of personal protective equipment (PPE) This may decrease voice recognition accuracy Inadvertent hatchery man errors may occur 10/28/2023 Encounter for screening for other disorder (ICD-10 - Z13.89) patient presents today for [facility] Acute Concerns/Problem List: 10/28/2023 #HTN: BP is stable. He is compliant on amlodipine with no unwanted side effects. -Continue amlodipine as prescribed. #Cerebral palsy: He is ambulating well with crutches. He admits to feeling well overall and has no other concerns. Home care services provided. #GERD: He is currently taking Omeprazole with good effect and no unwanted side effects. - Refill omeprazole. supplement VIt D Colorectal/EGD 01/2023 DANTE Alvarado Reviewed with patient the importance of medication and treatment plan compliance with BP goal of less then 140/90 per JNC 8 guidelines based on patient's age. This will ensure optimal health outcomes and prevent target organ damage. Made aware that uncontrolled hypertension may be silent and result in a stroke, heart attack, renal failure or even . Discussed the rationale for individualized medication regimen and the effects of their BP. Instructed to seek emergent care if the patient develops a headache, blurry vision, dizziness, chest pain or pressure. Patient seen for MEDICARE WELLNESS VISIT and examined. Comprehensive discussion was done on the following. 1. Nutrition: It is important to follow a healthy diet based on lots of vegetables and legumes and good fat. Avoid processed food and processed carbohydrates. Learn to prepare your own meals. Learn to read labels and avoid high fructose corn syrup, processed chemicals added to increase shelf life and preprepared meals. Avoid fast foods. Learn to eat slowly and plan meals for a week. Try to count calories and be mindful off daily calorie intake. Get into the habit of keeping an eye on your weight by using an appropriate scale. Learn to log exercise and discussed fitness Apps like [employer] which can help keep log off calories taken versus calories burned. Local food should be preferred. Discussed Dirty Dozen Versus Clean Fifteen. Discussed healthy supplements like fish oil, Tumeric, Curcumin, Melatonin, Resveratrol, Probiotics, Vitamin-D, Alpha-Lipoic acid, Vitamin-D and coconut oil. 2. It is important to exercise regularly. Is a good habit to walk at least 30-45 minutes a day. Gentle weightlifting with standard precautions to protect the back. Finding activity like cycling or hiking and get into the habit of engaging in it. Stretching before and after the exercises important. It is also important to contact me if there are any problems like shortness of breath, chest pain, back pain and joint or muscle pain associated with the exercise. 3. Discussed age appropriate gender specific screening guidelines. Colonoscopy needs to start at age 45 with stool for occult blood as appropriate. There is a new test that can test for genetic abnormalities in the stool sample. This would not replace a colonoscopy but could be used as a screening tool for patients who do not want a colonoscopy. We discussed the importance of early detection of colon cancer. 4. Discussed current gender specific guidelines with respect to breast examination, mammogram and pap smear for early detection of breast and cervical cancer. Patient advised to follow up with these appointments. 5. Discussed safe driving and no use of smart phone while driving 6. Age-appropriate immunizations were discussed. A tetanus booster is needed every 10 years. Flu vaccine is recommended every year just before the start of the flu season. Shingles vaccine is recommended after age 50 but not all insurances cover it. Pneumonia vaccine is given after age 65 unless there are certain comorbidities for which it is started earlier. Newly approved RSV vaccine was also discussed COVID booster discussed 7. Diagnostic labs were discussed. These could include CBC CMP and lipids with fasting blood glucose and insulin levels. Vitamin D and hemoglobin A1c testing might be appropriate. 8. Patient and I had a detailed discussion on healthcare proxy and will follow. . I gave form for that as well as [place] order for life sustaining treatment. I screen for depression and she seems to be okay. I counseled on elimination of refined carbohydrates and processed food 9. Patient will be tested for dementia by neuropsychologica l testing if warranted and deemed appropriate by provider Of note, some information is being carried forward from prior records for informational purposes only and is being cited so that efficiency, safety and quality of the patient's care is not compromised This note was prepared using voice recognition software and direct typing Please excuse inadvertent hatchery man or typing errors, or uncorrected word substitutions Although every attempt has been made by the provider to proofread this document, occasional misspellings and typographical errors may still be present Due to the previous pandemic, and the use of personal protective equipment (PPE) This may decrease voice recognition accuracy Inadvertent hatchery man errors may occur 12/18/2023 Pre-diabetes (ICD-10 - R73.03) Patient presents today for [facility] Acute Concerns/Problem List: 12/18/2023 We recommend RSV vaccination HTN: BP is stable. He is compliant on amlodipine with no unwanted side effects. Continue amlodipine as prescribed. Cerebral palsy: He is ambulating well with crutches. He admits to feeling well overall and has no other concerns. Home care services provided. GERD: He is currently taking Omeprazole with good effect and no unwanted side effects. Refill omeprazole. Colorectal/EGD 01/2023 DANTE Alvarado 4 mo f/u Reviewed with patient the importance of medication and treatment plan compliance with BP goal of less then 140/90 per JNC 8 guidelines based on patient's age. This will ensure optimal health outcomes and prevent target organ damage. Made aware that uncontrolled hypertension may be silent and result in a stroke, heart attack, renal failure or even . Discussed the rationale for individualized medication regimen and the effects of their BP. Instructed to seek emergent care if the patient develops a headache, blurry vision, dizziness, chest pain or pressure. Patient seen for MEDICARE WELLNESS VISIT and examined. Comprehensive discussion was done on the following. 1. Nutrition: It is important to follow a healthy diet based on lots of vegetables and legumes and good fat. Avoid processed food and processed carbohydrates. Learn to prepare your own meals. Learn to read labels and avoid high fructose corn syrup, processed chemicals added to increase shelf life and preprepared meals. Avoid fast foods. Learn to eat slowly and plan meals for a week. Try to count calories and be mindful off daily calorie intake. Get into the habit of keeping an eye on your weight by using an appropriate scale. Learn to log exercise and discussed fitness Apps like [employer] which can help keep log off calories taken versus calories burned. Local food should be preferred. Discussed Dirty Dozen Versus Clean Fifteen. Discussed healthy supplements like fish oil, Tumeric, Curcumin, Melatonin, Resveratrol, Probiotics, Vitamin-D, Alpha-Lipoic acid, Vitamin-D and coconut oil. 2. It is important to exercise regularly. Is a good habit to walk at least 30-45 minutes a day. Gentle weightlifting with standard precautions to protect the back. Finding activity like cycling or hiking and get into the habit of engaging in it. Stretching before and after the exercises important. It is also important to contact me if there are any problems like shortness of breath, chest pain, back pain and joint or muscle pain associated with the exercise. 3. Discussed age appropriate gender specific screening guidelines. Colonoscopy needs to start at age 45 with stool for occult blood as appropriate. There is a new test that can test for genetic abnormalities in the stool sample. This would not replace a colonoscopy but could be used as a screening tool for patients who do not want a colonoscopy. We discussed the importance of early detection of colon cancer. 4. Discussed current gender specific guidelines with respect to breast examination, mammogram and pap smear for early detection of breast and cervical cancer. Patient advised to follow up with these appointments. 5. Discussed safe driving and no use of smart phone while driving 6. Age-appropriate immunizations were discussed. A tetanus booster is needed every 10 years. Flu vaccine is recommended every year just before the start of the flu season. Shingles vaccine is recommended after age 50 but not all insurances cover it. Pneumonia vaccine is given after age 65 unless there are certain comorbidities for which it is started earlier. Newly approved RSV vaccine was also discussed COVID booster discussed 7. Diagnostic labs were discussed. These could include CBC CMP and lipids with fasting blood glucose and insulin levels. Vitamin D and hemoglobin A1c testing might be appropriate. 8. Patient and I had a detailed discussion on healthcare proxy and will follow. . I gave form for that as well as [place] order for life sustaining treatment. I screen for depression and she seems to be okay. I counseled on elimination of refined carbohydrates and processed food 9. Patient will be tested for dementia by neuropsychologica l testing if warranted and deemed appropriate by provider Of note, some information is being carried forward from prior records for informational purposes only and is being cited so that efficiency, safety and quality of the patient's care is not compromised This note was prepared using voice recognition software and direct typing Please excuse inadvertent hatchery man or typing errors, or uncorrected word substitutions Although every attempt has been made by the provider to proofread this document, occasional misspellings and typographical errors may still be present Due to the previous pandemic, and the use of personal protective equipment (PPE) This may decrease voice recognition accuracy Inadvertent hatchery man errors may occur PLAN OF TREATMENT Pending Test Test Name Order Date Lipid Panel 11/06/2020 Comp. Metabolic Panel (14) 11/06/2020 CBC 11/06/2020 Urinalysis 11/06/2020 25OH VITAMIN D 04/30/2023 CBC (COMPLETE BLOOD COUNT) 04/30/2023 CBC (COMPLETE BLOOD COUNT) 05/04/2019 CBC (COMPLETE BLOOD COUNT) 05/06/2018 COMPREHENSIVE METABOLIC PANEL 05/04/2019 COMPREHENSIVE METABOLIC PANEL 05/06/2018 COMPREHENSIVE METABOLIC PANEL 04/30/2023 HEMOGLOBIN A1C 04/30/2023 LIPID PANEL 04/30/2023 LIPID PANEL 05/04/2019 LIPID PANEL 05/06/2018 PSA, SCREEN 05/06/2018 PSA, SCREEN 06/17/2024 TSH 04/30/2023 TSH WITH REFLEX TO FT4 05/06/2018 URINALYSIS, COMPLETE 05/04/2019 URINALYSIS, COMPLETE 05/06/2018 LIPID PANEL, STANDARD 10/22/2021 LIPID PANEL, STANDARD 06/17/2024 COMPREHENSIVE METABOLIC PANEL 10/22/2021 COMPREHENSIVE METABOLIC PANEL 06/17/2024 CBC (INCLUDES DIFF/PLT) 06/17/2024 CBC (INCLUDES DIFF/PLT) 10/22/2021 URINALYSIS, COMPLETE 06/17/2024 URINALYSIS, COMPLETE 10/22/2021 HEMOGLOBIN A1c 06/17/2024 HEMOGLOBIN A1c 10/22/2021 TSH 10/22/2021 TSH 06/17/2024 VITAMIN D,25-OH,TOTAL,IA 10/22/2021 VITAMIN D,25-OH,TOTAL,IA 06/17/2024 COMPLETE URINALYSIS 04/30/2023 COVID-19 (NOVEL CORONAVIRUS), RNA PCR Next Appt Details Provider Name:SLY LUND, 12/22/2024 10:15:00 AM, [address] [place] [address] [address], [place], [address], Insurance Providers Payer Name Payer Address Payer Phone Subscriber Number Group Number Insured Name Patient Relationship to Insured Coverage Start Date Coverage End Date Medicare Part B [id number] [address] [facility] [place] [place] [address] [id number] Randy Cooper Self - patient is the insured 9 [employer] of [place] [address] [place] [address] [id number] Randy Cooper Self - patient is the insured MEDICAL (GENERAL) HISTORY Medical History History ICD Code anemia cerebral palsy esophageal reflux hyperlipidemia Surgical History Surgery Date(Month/Year) cataract removal ankle surgery colonoscopy due Laser surgery on the Left eye 10/03/21
--- OUTSIDE RECORDS SUMMARY | 2024-10-15 07:47 | XMS_ITS ---
Author Organization [facility] Address [address] [place] [address] Care Team Providers Care Backup Engineer Name Role Phone JOSE DUDLEY Primary Care Provider [phone] SLY LUND Unavailable [phone] ALLERGIES No Known Allergies REASON FOR VISIT Pt seen in office for follow up visit. updated medication list MEDICATIONS Medication SIG (Take, Route, Frequency, Duration) Notes Start Date End Date Status Centrum Silver - Orally Not -Taking amLODIPine Besylate 5 MG TAKE 1 TABLET B Y MOUTH EVERY DAY for 90 Active Vitamin D3 125 MCG (5000 UT) 1 capsule Orally Once a day for 90 days Active Omeprazole 20 MG TAKE 1 CAPSULE BY MO UTH EVERY DAY FOR 90 DAYS for 90 Active Thera Tears Allergy Not-Taking Spectravite - as directed Orally Not-Taking SOCIAL HISTORY Tobacco Use: Social History Observation Description Date Details (start date - stop date) Never Smoker NA - NA Sex Assigned At : Social History Observation Description Sex Assigned At Unknown Tobacco Use/Smoking Question Answer Notes Are you a nonsmoker VITAL SIGNS Blood pressure systolic 130 mm Hg 06/17/20 24 Blood pressure diastolic 82 mm Hg 024 Heart Rate 94 /min 06/17/2024 Height 59 in 06/17/2024 Weight 128 lbs 06/17/2024 BMI 25.85 kg/m2 06/17/2024 Oximetry 98 % 06/17/2024 Encounters Encounter Location Date Provider Diagnosis [facility] [address] [facility] [address] [place] [address] 06/17/2024 SLY LUND Ataxic cerebral pals y G80.4 ; Essential (primary) hypertension I10 ; Hyperlipidemia, unspecified E78.5 ; Hypothyroidism, unspecified type E03.9 and Pre-diabetes R73.03 ASSESSMENTS Encounter Date Diagnosis Assessment Notes Treatment [...] software and direct typing Please excuse inadvertent dive master or typing errors, or uncorrected word substitutions Although every attempt has been made by the provider to proofread this document, occasional misspellings and typographical errors may still be present Due to the previous pandemic, and the use of personal protective equipment (PPE) This may decrease voice recognition accuracy Inadvertent dive master errors may occur 06/17/2024 Essential (primary) hypertension [...] software and direct typing Please excuse inadvertent dive master or typing errors, or uncorrected word substitutions Although every attempt has been made by the provider to proofread this document, occasional misspellings and typographical errors may still be present Due to the previous pandemic, and the use of personal protective equipment (PPE) This may decrease voice recognition accuracy Inadvertent dive master errors may occur 06/17/2024 Hyperlipidemia, unspecified (ICD-10 [...] software and direct typing Please excuse inadvertent dive master or typing errors, or uncorrected word substitutions Although every attempt has been made by the provider to proofread this document, occasional misspellings and typographical errors may still be present Due to the previous pandemic, and the use of personal protective equipment (PPE) This may decrease voice recognition accuracy Inadvertent dive master errors may occur 06/17/2024 Hypothyroidism, unspecified type [...] software and direct typing Please excuse inadvertent dive master or typing errors, or uncorrected word substitutions Although every attempt has been made by the provider to proofread this document, occasional misspellings and typographical errors may still be present Due to the previous pandemic, and the use of personal protective equipment (PPE) This may decrease voice recognition accuracy Inadvertent dive master errors may occur 06/17/2024 Pre-diabetes (ICD-10 - [...] software and direct typing Please excuse inadvertent dive master or typing errors, or uncorrected word substitutions Although every attempt has been made by the provider to proofread this document, occasional misspellings and typographical errors may still be present Due to the previous pandemic, and the use of personal protective equipment (PPE) This may decrease voice recognition accuracy Inadvertent dive master errors may occur PLAN OF TREATMENT Medication Medication Name Sig Start Date Stop Date Notes Vitamin D3 125 MCG (5000 UT) 1 capsule O rally Once a day for 90 days Omeprazole 20 MG TAKE 1 CAPSULE BY MO UT EVERY DAY FOR 90 DAYS for 90 Pending Test Test Name Order Date PSA, SCREEN 06/17/2024 LIPID PANEL, STANDARD 06/17/2024 COMPREHENSIVE METABOLIC PANEL 06/17/2024 CBC (INCLUDES DIFF/PLT) 06/17/2024 URINALYSIS, COMPLETE 06/17/2024 HEMOGLOBIN A1c 06/17/2024 TSH 06/17/2024 VITAMIN D,25-OH,TOTAL,IA 06/17/2024 Next Appt Details Provider Name:SLY LUND, 12/22/2024 10:15:00 AM, [address], [address], [place], [address], Progress Notes * Randy MOJICADOB:1955 (69 yo M)Acc No.[id number]:06/17/2024 Progress Notes Patient:??Randy MOJICA Provider:??SLY LUND NP :1955?Age:69 Y?Sex:Chana le Date:06/17/2024 Address:[address] [place] [address], [facility] Pcp:JOSE DUDLEY Subjective: * Chief Complaints: * ?1. Pt seen in office f or follow up visit. updated medication list. * HPI: ?Constitutional:? Patient is here for Chronic Disease Management follow-up visit ?Patient seen and examined. ? Full past medical history, social history, family history, ?allergies and current medications were reviewed and updated. ?Acute Concerns/Problem List: ?06/17/2024 ?He states today that he feels well and has no acute medical concerns. ?Updated HCP Sister Yelena Barr ?Comprehensive labs are reviewed ?no recent falls ?No recurrence of vertigo ?Head imaging unremarkable ?Given meclizine which resolved his symptoms ?His BP readings at home have been stable in the 120's/ 130's SBP. ?He is compliant on all his medications with no unwanted side effects. 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 ?He and his brother live together in elderly housing in [place] with home care services. ?Denies CP, SOB, n/v, bowel or bladder changes, abdominal pain. ?Comprehensive labs, December 2023 ?CBC is stable ?Electrolytes renal function LFTs are stable ?Hemoglobin A1c of 4.7 ?Total cholesterol 151, LDL 74, HDL 62, triglycerides 79 ?TSH 2.31 ?Urinalysis unremarkable ?Vitamin D 53 ?Health Maintenance: ?RSV, no Previous ?He is up to date with his COVID vaccine. ?Flu vaccine 2023 ?EGD/Cscope September 2023, [facility] ?5-year surveillance. * ROS:?All Other Systems:?Review of Systems (ROS)??All others negative except those mentioned in HPI.? * Medical History:??Anemia, Ce rebral palsy, Esophageal reflux, Hyperlipidemia. * Surgical History:??cataract removal , ankle surgery , colonoscopy due , Laser surgery on the Left eye 10/03/21. * Hospitalization/Major Diagno stic Procedure:??Denies Past Hospitalization. * Family History:??Father: lucy gnosed with Unspecified heart disease.??Mother: diagnosed with Other malignant neoplasm of unspecified site.??4 brother(s) , 1 sister(s) . .?? * Social History:?Tobacco Use:??Tobacco Use/Smoking??Are you a??nonsmoker.?? * Medications:??Taking Vitamin D3 125 MCG (5000 UT) Capsule 1 capsule Orally Once a day , Taking Omeprazole 20 MG Capsule Delayed Release TAKE 1 CAPSULE BY MOUTH EVERY DAY FOR 90 DAYS , Taking amLODIPine Besylate 5 MG Tablet TAKE 1 TABLET BY MOUTH EVERY DAY , Not-Taking Spectravite - Tablet as directed Orally , Not-Taking Thera Tears Allergy , Not-Taking Centrum Silver - Tablet Orally , Medication List reviewed and reconciled with the patient * Allergies:??N.K.D.A. Objective: * Vitals:??HR:94/min, BP:130/8 2mm Hg, Wt:128lbs, BMI:25.85Index, Ht: 59 in, Oxygen sat %:98%. * Examination: ?General Examination: ?GENERAL APPEARANCE:??Chronically ill and debilitated.??HEAD:??NCAT.??NECK/THYROID:??neck supple, full range of motion..??SKIN:??no suspicious lesions, warm and dry.??HEART:??no murmurs, regular rate and rhythm, S1, S2 normal..??LUNGS:??clear to auscultation bilaterally.??ABDOMEN:??normal, soft, nontender, nondistended.??EXTREMITIES:??no clubbing, cyanosis, or edema.??NEUROLOGIC:??nonfocal, Active range of motion present in the upper extremities bilaterally. No active range of motion present in lower extremities bilaterally.?Sensory exam intact. Ambulating with crutches.? 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 Acute Concerns/Problem List: 06/17/2024 Chronic conditions are [...] software and direct typing Please excuse inadvertent dive master or typing errors, or uncorrected word substitutions Although every attempt has been made by the provider to proofread this document, occasional misspellings and typographical errors may still be present Due to the previous pandemic, and the use of personal protective equipment (PPE) This may decrease voice recognition accuracy Inadvertent dive master errors may occur. Plan: * Treatment: * Labs:?? * ?Lab: HEMOGLOBIN A1 c ?Lab: VITAMIN D,25- [place],TOTAL,IA ?Lab: URINALYSIS, C OMPLETE ?Lab: COMPREHENSIVE METABOLIC PANEL ?Lab: CBC (INCLUDES DIFF/PLT) ?Lab: PSA, SCREEN ?Lab: TSH ?Lab: LIPID PANEL, STANDARD * Images: Billing Information: * Visit Code:?? 55494 Office Visit, Est Pt., Level 4. * Procedure Codes:?? Care Plan Details* * Sign off status: Completed true * Provider:??SLY LUND NP Date:??12/2023 History and Physical Notes * HPI (History of Present Illness) Category Sub-Category Detail Notes Category Not es Constitutional Patient is here for Chronic Disease Management follow-up visit Patient seen and examined. Full past medical history, social history, family history, allergies and current medications were reviewed and updated. Acute Concerns/Problem List: 06/17/2024 He states today that he feels well and has no acute medical concerns. Updated HCP Sister Yelena Barr Comprehensive labs are reviewed no recent falls No recurrence of vertigo Head imaging unremarkable Given meclizine which resolved his symptoms His BP readings at home have been stable in the 120's/ 130's SBP. He is compliant on all his medications with no unwanted side effects. He has a history of ataxic cerebral palsy and is ambulating today with crutches. He and his brother live together in elderly housing in [place] with home care services. Denies CP, SOB, n/v, bowel or bladder changes, abdominal pain. Comprehensive labs, December 2023 CBC is stable Electrolytes renal function LFTs are stable Hemoglobin A1c of 4.7 Total cholesterol 151, LDL 74, HDL 62, triglycerides 79 TSH 2.31 Urinalysis unremarkable Vitamin D 53 Health Maintenance: RSV, no Previous He is up to date with his COVID vaccine. Flu vaccine 2023 EGD/Cscope September 2023, [facility] 5-year surveillance Examination Category Sub-Category Detail Notes Category Not es General Examination GENERAL APPEARANCE: Chronica lly ill and debilitated HEAD: NCAT NECK/THYROID: neck supple, full ra nge of motion. HEART: no murmurs, regular rate and rhythm, S1, S2 normal. LUNGS: clear to auscultatio n bilaterally ABDOMEN: normal, soft, nonten wilfrid, nondistended NEUROLOGIC: nonfocal, Active ran ge of motion present in the upper extremities bilaterally. No active range of motion present in lower extremities bilaterally. Sensory exam intact. Ambulating with crutches SKIN: no suspicious lesion s, warm and dry EXTREMITIES: no clubbing, cyanosi s, or edema
--- OUTSIDE RECORDS SUMMARY | 2024-10-15 07:47 | XMS_ITS | Clinical Summary ---
Author Organization [facility] ity Address [address] [place] [address] Care Team Providers Care Pourer Crane Ladle Name Role Phone Lupillo Mejia MD Primary Care Provider [phone] Social History Tobacco Use Types Packs/Day Years Used Date Smoking Tobacco: Never Assessed Sex and Gender Information Value Date Recorded Sex Assigned at Not on file Legal Sex Male 5:46 PM EST Gender Identity Not on file Sexual Orientation Not on file Plan of Treatment Health Maintenance Due Date Last Done Comments Zoster Vaccines (1 of 2) 2007 Pneumococcal Vaccine: 50+ Years (2 of 2 - PCV) 05/06/2019 05/06/2018 Abdominal Aortic Aneurysm (AAA) Screen 06/25/2022 Cholesterol Screening (Lipid Panel) 06/25/2022 Colorectal Cancer Screening: Colonoscopy 06/25/2022 Depression Screening 06/25/2022 Falls Risk Assessment 06/25/2022 Hepatitis C Screening 06/25/2022 Social Influencers of Health Screening 06/25/2022 Medicare Annual Wellness Visit 10/22/2022 10/22/2021 COVID-19 Vaccine (1 - 2023-2 5 season) 2024 Influenza Vaccine (#1) 2024 , 05/08/2020, 05/04/2019 RSV Immunization Adult Patients (1 - 1-dose 75+ series) 2032 DTaP,Tdap,and Td Vaccines (4 - Td or Tdap) 09/08/2032 09/08/2022, 02/10/2018, 01/22/2015 HIB Vaccines Aged Out No longer eligi ble based on patient's age to complete this topic HPV Vaccines Aged Out No longer eligi ble based on patient's age to complete this topic Hepatitis A Vaccines Aged Out No long er eligible based on patient's age to complete this topic Hepatitis B Vaccines Aged Out No long er eligible based on patient's age to complete this topic IPV Vaccines Aged Out No longer eligi ble based on patient's age to complete this topic MMR Vaccines Aged Out No longer eligi ble based on patient's age to complete this topic Meningococcal ACWY Vaccine Aged Out N o longer eligible based on patient's age to complete this topic Meningococcal B Vacine Aged Out No lo nger eligible based on patient's age to complete this topic RSV Immunization Patients Under 20 months Aged Out No longer eligible b ased on patient's age to complete this topic Varicella Vaccines Aged Out No longer eligible based on patient's age to complete this topic Care Teams Pourer Crane Ladle Relationship Specialty Start Date End Date Lupillo Mejia MD PCP - General 10/28/22
--- OUTSIDE RECORDS SUMMARY | 2024-10-15 07:47 | XMS_ITS ---
Author Organization [facility] Address [address] [place] [address] Care Team Providers Care Python Web Developer Name Role Phone JOSE DUDLEY Primary Care Provider REASON FOR VISIT CCM - colonoscopy Encounters Encounter Location Date Provider Diagnosis [address] [place] [address] 08/30/2024 JOSE DUDLEY PLAN OF TREATMENT Next Appt Details Provider Name:SLY ROSYELROYZuri, 12/22/2024 10:15:00 AM, [address], [address], [place], [address], Progress Notes * Randy MOJICADOB:1955 (69 yo M)Acc No.[id number]:08/30/2024 Patient:??Randy MOJICA :1955?Age:69 Y?Sex:Chana dick Address:[address] [place] [address] [address] [facility], [place] [address] * true * Date:??
--- NOTE | 2024-10-15 07:53 | ED_ITS ---
HPI - Fall General Chief Complaint: Fall Stated Complaint: FALL,HEAD LAC,CONTROLLED,-LOC,-THINNER PER EMS Time Seen by Provider: 10/15/24 07:04 History of Present Illness HPI Narrative: Patient is a 69-year-old male status post fall patient tripped on the way to the bathroom hit the top of his head. Not on any blood thinners. There was no loss of consciousness. came in because of a large laceration to the top of his head. no vomiting. No focal weakness. No alcohol. Related Data Previous Rx's ?Medication ?Instructions ?Recorded meclizine 25 mg tablet 25 mg PO BID PRN dizziness #14 tabs 08/27/23 Allergies Allergy/AdvReac Type Severity Reaction Status Date / Time cat dander Allergy Unknown Verified 10/15/24 06:33 lobster Allergy Vomiting Uncoded 10/15/24 06:33 Review of Systems Review of Systems: Positive head injury [facility] Past Medical History Attestation statement: The following information was validated with the patient. Social History Social History Alcohol intake: current Alcohol intake frequency: a few times a week Alcohol type: beer Smoked in Last 30 Days: No Use of substances other than those prescribed or required for medical reasons: No Advance Directives: No Advance Directives Information Provided: Yes Physical Exam Vital Signs: Vital Signs: Last Vital Signs Temp 97.8 F 10/15/24 08:13 Pulse 71 10/15/24 08:13 Resp 14 10/15/24 08:13 BP 126/66 10/15/24 08:13 Pulse Ox 95 10/15/24 08:13 O2 Del Method Room Air 10/15/24 08:13 BMI result Body Mass Index 21.5 Appearance: Alert. Oriented X3. No acute distress. Eyes: Pupils equal, round and reactive to light. ENT: Pharynx normal. Neck: Normal inspection. Neck supple. No lymph nodes noted. No crepitus CVS: Normal heart rate and rhythm. Pulses normal. Normal S1 and S2 Respiratory: No respiratory distress. Breath sounds normal. No Wheezing. No rales Abdomen: Soft and nontender. No rigidity. No distention. good BS x4 Skin: Positive laceration to the right frontal parietal area approximately 10 cm in size. Down to subcutaneous tissue. Extremities: No lower extremity edema. Neurovascular intact to all extremities. No Lacerations. No Rash Neuro: Oriented X 3. No motor deficit. No sensory deficit. Moving all extermities. No slurred speech Medications Administered Discontinued Medications Generic Name Dose Route Start Last Admin Trade Name Carlitos PRN Reason Stop Dose Admin Lidocaine HCl 10 ml 10/15/24 07:49 10/15/24 08:18 Lidocaine Hcl 1 % Mpf 5 Ml Vial SUBCUT 10/15/24 07:50 10 ml ONCE ONE Administration Procedures Laceration scalp: Site: scalp Side (If applicable): right Size (cm): 7 Description: linear Depth: simple, single layer Number of sutures: 6 Subcutaneous layer closed with: other (alma) Medical Decision Making Medical Decision Making [facility] Narrative: Patient's wound was copiously cleaned. Subsequently closed with staplers. Because of the extensive wound. CT scan of the head was done. Patient denies any loss of consciousness no nausea no vomiting not on thinners. Currently in stable condition. Differential Diagnosis Differential Diagnoses: The differential diagnosis associated with the presentation includes Intracranial bleed, foreign object, laceration, fracture Admission/Observation Consideration of admission/observation: Escalation of care including admission/observation considered Lab Data [facility] Lab Attestation statement: I reviewed the patient's lab results. Independent Interpretation I performed an independent interpretation of an: CT Scan (ct head negative for bleed) Radiology Impression Discussion of test interpretation with radiology: I have reviewed the radiolo gist's reading. Social Determinants Patient?s care significantly limited by Social Determinants of Health including: Problems related to primary support group Discharge Plan Discharge Clinical Impression: Head injury, Laceration of scalp Patient Disposition: Home, Self-Care Instructions: Laceration (DC), Head Injury (ED) Prescriptions: No Action meclizine 25 mg tablet 25 mg PO BID PRN (Reason: dizziness) Qty: 14 0RF Referrals: Lupillo Mejia MD [Primary Care Provider] - (staple removal in 1 week) Print Language: Japanese
[2024-10-15 08:13] VITALS: BP 126/66; PULSE 71; RESP 14; TEMP 36.6; O2SAT 95
[2024-10-15] MEDS: Lidocaine HCl 1 % MPF 5 ML VIAL 10 ML SUBCUT (08:18)
--- NOTE | 2024-10-15 08:29 | PC.NURSE ---
Dr. Thomas at bedside for wound closure. #6 alma placed to scalp. Pt tolerated procedure well.
--- NOTE | 2024-10-15 09:20 | PC.NURSE ---
Pts twin brother Jose calls inquiring about Pts situation. Pt gives this RN verbal permission to speak with his brother. Jose made aware Pt is awaiting CT result and had #6 alma placed to laceration to scalp. Once CT results obtained more information will be available. Jose expresses gratitude for information.
[2024-10-15 10:08] VITALS: BP 139/84; PULSE 76; RESP 14; TEMP 36.7; O2SAT 96
[2024-10-15 10:10] VITALS: BP 139/84; PULSE 76; RESP 14; TEMP 36.7; O2SAT 96
== END 2024-10-15 11:55 | disposition home or self-care (01) ==
PROVIDERS: Emergency Provider Emergency Medicine Emergency Medical Services; PCP Internal Medicine
DX: S01.01XA Laceration without foreign body of scalp, initial encounter (principal); W01.0XXA Fall on same level from slipping, tripping and stumbling without subsequent striking against object, initial encounter; Y93.9 Activity, unspecified; Y92.039 Unspecified place in apartment as the place of occurrence of the external cause; Y99.9 Unspecified external cause status
CPT/HCPCS: 12002; 70450; 72125; 99284; J2003

== ENCOUNTER → 2024-10-15 07:50 | Outpatient (BNV) | payer MEDICARE, MEDICAID, SELFPAY | PROVIDERS: Emergency Provider Emergency Medicine Emergency Medical Services; PCP Internal Medicine; Visit Provider Specialist | DX: S01.01XA Laceration without foreign body of scalp, initial encounter (principal); W19.XXXA Unspecified fall, initial encounter | CPT/HCPCS: 70450; 72125 ==